=== PATIENT | female | born 1950 | race Caucasian/White ===

== ENCOUNTER → 2019-10-07 13:07 | Outpatient (BNVA) | payer MEDICARE, OTHER, SELFPAY | PROVIDERS: Family Provider Family Medicine; PCP Family Medicine; Referring Provider Internal Medicine Rheumatology; Visit Provider Internal Medicine Rheumatology | DX: M05.79 Rheumatoid arthritis with rheumatoid factor of multiple sites without organ or systems involvement (principal) | CPT/HCPCS: 96365; 96374; 96375; J1642; J2930; J3262 ==

== ENCOUNTER 2019-10-07 13:30 | Outpatient (CLI) | payer MEDICARE, OTHER, SELFPAY | END 2019-10-07 13:31 | disposition home or self-care (01) | LOC: RHEOACUTE 10-18 16:09 | PROVIDERS: Family Provider Family Medicine; PCP Family Medicine; Visit Provider Internal Medicine Rheumatology | DX: Z76.89 Persons encountering health services in other specified circumstances (principal) | CPT/HCPCS: J1642; J2930; J3262 ==

== ENCOUNTER → 2019-11-03 10:46 | Outpatient (BNVA) | payer MEDICARE, OTHER, SELFPAY | PROVIDERS: Family Provider Family Medicine; PCP Family Medicine; Visit Provider Internal Medicine Rheumatology | DX: M05.9 Rheumatoid arthritis with rheumatoid factor, unspecified (principal); Z79.899 Other long term (current) drug therapy; Z11.59 Encounter for screening for other viral diseases; D72.819 Decreased white blood cell count, unspecified; M20.41 Other hammer toe(s) (acquired), right foot; M85.841 Other specified disorders of bone density and structure, right hand | CPT/HCPCS: 36415; 71046; 73130; 73630; 80076; 82306; 82565; 84439; 84443; 85025; 85651; 86140; 86480; 86704; 86803; 87340; 99214 ==

== ENCOUNTER 2019-11-03 13:15 | Outpatient (CLI) | payer MEDICARE, OTHER, SELFPAY ==
--- NOTE | 2019-11-03 13:25 | XR_ITS ---
WS: [id number] FOOT LEFT TECHNIQUE: 3 views of the left foot CLINICAL INFORMATION: ARTHRITIS COMPARISON: None. FINDINGS: Postoperative changes partial resection of the first proximal phalanx with joint replacement at the f irst MTP. Resection of the fifth phalanges. Resection of the fifth metatarsal with exclusion of the b ase. Chronic appearing erosive changes involving the second third and fourth metatarsal heads. 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 Diffuse osteopenia. Resection of the second phalanges. XR/XR foot LT min 3V* [id number] IMPRESSION: 1. Chronic appearing postoperative changes with replacement of the first MTP. 2. Resection of the majority of the fifth metatarsal and second and fifth phal anges. 3. Chronic appearing dislocation of the third MTP.
--- NOTE | 2019-11-03 13:25 | XR_ITS ---
WS: [id number] HAND LEFT TECHNIQUE: 3 views of the left hand CLINICAL INFORMATION: ARTHRITIS COMPARISON: 2009 FINDINGS: Osteopenia. Advanced arthritis the radiocarpal joint with subchondral cystic change. Loss of the radi ocarpal joint space. Advanced degenerative change at the DRUJ. Previous joint prostheses at the secon d third fourth and fifth MTP joints. Chronic narrowing with advanced erosive changes involving the fi rst and second MTP joints. Periarticular erosions about the MTP joints. PIP and DIP joints are better preserved. XR/XR hand LT min 3V* [id number] IMPRESSION: 1. Advanced erosive changes with prior joint prostheses at the second through fifth MTP joints. 2. Advanced degenerative narrowing at the radiocarpal joint with subchondral c ystic change.
--- NOTE | 2019-11-03 13:25 | XR_ITS ---
WS: [id number] PROCEDURE: XR chest 2V* [id number] CLINICAL INFORMATION: ARTHRITIS COMPARISON: October 13, 2015 FINDINGS: Right Port-A-Cath with tip in the proximal SVC. This appears unchanged. Heart: Normal cardiac silhouette. Aortic calcification. Lungs: Chronic emphysematous changes. No acute pulmonary infiltrates. Slight linear atelectasis left midlung unchanged. Bones: Mild thoracic kyphosis with hypertrophic changes thoracic spine. XR/XR chest 2V* [id number] IMPRESSION: No acute chest findings.
--- NOTE | 2019-11-03 13:25 | XR_ITS ---
WS: [id number] HAND RIGHT TECHNIQUE: 3 views of the right hand CLINICAL INFORMATION: ARTHRITIS COMPARISON: 2009 FINDINGS: Osteopenia. Advanced degenerative arthritis at the first through fifth MTP joints with periarticular erosive changes and complete loss of the joint space. PIP and DIP joints are better preserved. Osteop enia. Advanced narrowing at the radiocarpal joint with subchondral cystic change. Advanced degenerati ve changes at the DRUJ. XR/XR hand RT min 3V* [id number] IMPRESSION: 1. Advanced joint space narrowing and erosive changes at the first through fif th MTP joints. 2. Advanced severe narrowing at the radiocarpal joint with subchondral cystic change. 3. Osteopenia.
--- NOTE | 2019-11-03 13:25 | XR_ITS ---
WS: [id number] FOOT RIGHT TECHNIQUE: 3 views of the right foot CLINICAL INFORMATION: ARTHRITIS COMPARISON: None. FINDINGS: Chronic appearing erosive changes involving the metatarsal heads. Partial replacement of the first MT PJ. Widening and subluxation at the second through fifth MTP joints with periarticular erosions. Oste openia. Hammertoe deformities. XR/XR foot RT min 3V* [id number] IMPRESSION: 1. Partial replacement of the first MTP. 2. Chronic erosive changes involving the metatarsal heads with subluxation of the MTP joints. 3. Hammertoe deformities.
== END 2019-11-03 13:16 | disposition home or self-care (01) ==
PROVIDERS: Family Provider Family Medicine; PCP Family Medicine; Visit Provider Internal Medicine Rheumatology
DX: M20.41 Other hammer toe(s) (acquired), right foot (principal); M85.841 Other specified disorders of bone density and structure, right hand
CPT/HCPCS: 36415; 71046; 73130; 73630; 80076; 82306; 82565; 84439; 84443; 85651; 86140; 86480; 86704; 86803; 87340; 99214

== ENCOUNTER 2019-11-18 12:40 | Outpatient (CLI) | payer MEDICARE, OTHER, SELFPAY ==
[2019-11-18 13:14] VITALS: BP 122/80; PULSE 83; RESP 16; TEMP 36.6; O2SAT 96
[2019-11-18] MEDS: cetirizine 10 mg Tablet PO (13:59)
[2019-11-18 17:39] VITALS: BP 124/78; PULSE 80; RESP 18; TEMP 36.4; O2SAT 96
--- NOTE | 2019-11-18 17:40 | PC.NURSE ---
Attempted access of port a cath in right lower chest breast area. Port small, moveable and turns. No blood return noted. Pt stated they have never been able to obtain blood return. Attempted x 2. Pt stated NS flush burned. DC port needle x2. Discussed with pt that without blood return we do not know if port functioning and cannot infuse medication in it. Pt verbalized understanding. Advised to see MD regarding port and future use. Dr. Landaverde notified. IV started for infusion.
== END 2019-11-18 12:41 | disposition home or self-care (01) ==
LOC: RHEOACUTE 12:43
PROVIDERS: Family Provider Family Medicine; PCP Family Medicine; Visit Provider Internal Medicine Rheumatology
DX: M05.79 Rheumatoid arthritis with rheumatoid factor of multiple sites without organ or systems involvement (principal); Z79.899 Other long term (current) drug therapy
CPT/HCPCS: 36415; 85025; 96365; 96374; J2930; J3262

== ENCOUNTER → 2019-11-18 16:09 | Outpatient (BNVA) | payer MEDICARE, OTHER, SELFPAY | PROVIDERS: Family Provider Family Medicine; PCP Family Medicine; Visit Provider Internal Medicine Rheumatology | DX: M05.79 Rheumatoid arthritis with rheumatoid factor of multiple sites without organ or systems involvement (principal); Z79.899 Other long term (current) drug therapy | CPT/HCPCS: 85025 ==

== ENCOUNTER 2019-12-21 09:15 | Outpatient (CLI) | payer MEDICARE, OTHER, SELFPAY ==
[2019-12-21 09:20] VITALS: BP 117/79; PULSE 81; RESP 16; TEMP 36.4; O2SAT 96
[2019-12-21] MEDS: cetirizine 10 mg Tablet PO (09:48)
[2019-12-21 11:20] VITALS: BP 118/75; PULSE 76; RESP 16; TEMP 36.8; O2SAT 96
--- NOTE | 2019-12-21 14:13 | PC.NURSE ---
Denies illness, exposure to anyone with or suspected of COVID 19, Denies cough, denies fever.
== END 2019-12-21 09:16 | disposition home or self-care (01) ==
LOC: RHEOACUTE 09:17
PROVIDERS: Family Provider Family Medicine; PCP Family Medicine; Visit Provider Internal Medicine Rheumatology
DX: M05.9 Rheumatoid arthritis with rheumatoid factor, unspecified (principal)
CPT/HCPCS: 96365; 96374; J2930; J3262

== ENCOUNTER 2020-01-13 09:54 | Outpatient (CLI) | payer MEDICARE, OTHER, SELFPAY ==
[2020-01-13 10:00] VITALS: BP 133/83; PULSE 87; RESP 16; TEMP 36.8; O2SAT 94
[2020-01-13] MEDS: cetirizine 10 mg Tablet PO (12:10)
--- NOTE | 2020-01-13 12:12 | PC.NURSE ---
1030 Port a cath to R lower chest/breast area. Unable to access successfully. No blood return. Pt states no blood return in quite some time. Advised she needs to look into new port for infusions.
--- NOTE | 2020-01-13 12:13 | PC.NURSE ---
1150 Pt stated she thought she pulled IV and now stinging. Sl swelling noted above site. IV DC'd. IV restarted to L wrist area.
[2020-01-13 12:46] VITALS: BP 116/75; PULSE 76; RESP 18; O2SAT 94
== END 2020-01-13 09:55 | disposition home or self-care (01) ==
LOC: RHEOACUTE 09:56
PROVIDERS: Family Provider Family Medicine; PCP Family Medicine; Visit Provider Internal Medicine Rheumatology
DX: M05.79 Rheumatoid arthritis with rheumatoid factor of multiple sites without organ or systems involvement (principal); Z79.899 Other long term (current) drug therapy
CPT/HCPCS: 36415; 80076; 82565; 85025; 85651; 86140; 96365; 96374; J2930; J3262

== ENCOUNTER 2020-03-13 10:53 | Outpatient (CLI) | payer MEDICARE, OTHER, SELFPAY ==
[2020-03-13 11:05] VITALS: BP 102/71; PULSE 85; RESP 16; TEMP 36.4; O2SAT 98
[2020-03-13] MEDS: cetirizine 10 mg Tablet PO (11:56)
[2020-03-13 13:50] VITALS: BP 104/64; PULSE 72; RESP 16; TEMP 36.4; O2SAT 98
== END 2020-03-13 10:54 | disposition home or self-care (01) ==
LOC: RHEOACUTE 10:54
PROVIDERS: Family Provider Family Medicine; PCP Family Medicine; Visit Provider Internal Medicine Rheumatology
DX: M05.79 Rheumatoid arthritis with rheumatoid factor of multiple sites without organ or systems involvement (principal); Z79.899 Other long term (current) drug therapy
CPT/HCPCS: 36415; 80076; 82565; 85025; 85651; 86140; 96365; 96374; J1642; J2930; J3262

== ENCOUNTER 2020-06-07 09:15 | Outpatient (CLI) | payer MEDICARE, OTHER, SELFPAY ==
[2020-06-07] VITALS (8 sets, daily range): BP systolic 92–110; BP diastolic 58–68; PULSE 66–82; RESP 16; TEMP 36.4; O2SAT 94–98; BMI 25.9
[2020-06-07] MEDS: sodium chloride 0.9% 250 ML 500 ML IV (10:20)
--- NOTE | 2020-06-07 10:25 | PC.NURSE ---
0925 Pt A&Ox4. Denies pain. Ambulating without assistance. Lungs clear. Normal S1S2 noted. No edema. Noted BP. Pt denies any BP issues, denies dizziness or feeling faint. Took Lasix last pm. Pt concerned about labs to be drawn per PCP. Discussed we would contact PCP. Dr. Landaverde notified of BP. RBVO for NS bolus. Dr. Landaverde discussed plan for NS bolus with pt. Pt agreed and verbalized understanding.
--- NOTE | 2020-06-07 10:58 | PC.NURSE ---
0915 Standing BP 97/62 HR 78
[2020-06-07] MEDS: sodium chloride 0.9% 1,000 ML 500 ML (10:59)
--- NOTE | 2020-06-07 10:59 | PC.NURSE ---
8087 Dr. Landaverde notified of bolus complete and BP. Lungs clear. New orders to repeat bolus.
--- NOTE | 2020-06-07 12:02 | PC.NURSE ---
1140 Pt expressing frustration with delay. Apologized. Will continue to monitor
--- NOTE | 2020-06-07 12:03 | PC.NURSE ---
Notified Dr. Landaverde of BP and completed bolus. OK to give Actemra infusion.
--- NOTE | 2020-06-07 12:05 | PC.NURSE ---
Attempted PCP office regarding BP and pt request for additional labs. Called 3 times. Disconnected 2x. Left message for nurse approx. @1000.
[2020-06-07] MEDS: cetirizine 10 mg Tablet PO (12:15)
--- NOTE | 2020-06-07 12:18 | PC.NURSE ---
[place] juice given per request
--- NOTE | 2020-06-07 12:52 | PC.NURSE ---
c/o chair and discomfort from sitting. Pillow given and assisted pt with placement.
--- NOTE | 2020-06-07 13:22 | PC.NURSE ---
Dr. Landaverde notified of VS
--- NOTE | 2020-06-07 13:25 | PC.NURSE ---
Left message for Dr. Dugan's nurse.
--- NOTE | 2020-06-07 14:30 | PC.NURSE ---
No return call from PCP office. Pt instructed to contact PCP office regarding blood pressure.
== END 2020-06-07 09:16 | disposition home or self-care (01) ==
LOC: RHEOACUTE 09:18
PROVIDERS: Family Provider Family Medicine; PCP Family Medicine; Visit Provider Internal Medicine Rheumatology
DX: M05.79 Rheumatoid arthritis with rheumatoid factor of multiple sites without organ or systems involvement (principal); Z79.899 Other long term (current) drug therapy
CPT/HCPCS: 80076; 82565; 85025; 85651; 86140; 96365; 96375; J2930; J3262; J7030; J7050

== ENCOUNTER 2020-07-13 10:00 | Outpatient (CLI) | payer MEDICARE, OTHER, SELFPAY ==
[2020-07-13 10:00] VITALS: BP 120/73; PULSE 80; RESP 16; TEMP 36.7; O2SAT 98
[2020-07-13] MEDS: cetirizine 10 mg Tablet PO (10:30)
[2020-07-13 11:16] VITALS: BMI 25.9
[2020-07-13 12:22] VITALS: BP 109/66; PULSE 76; RESP 16; O2SAT 98
== END 2020-07-13 10:01 | disposition home or self-care (01) ==
LOC: RHEOACUTE 10:01
PROVIDERS: Family Provider Family Medicine; PCP Family Medicine; Visit Provider Internal Medicine Rheumatology
DX: M05.79 Rheumatoid arthritis with rheumatoid factor of multiple sites without organ or systems involvement (principal)
CPT/HCPCS: 96365; 96375; J2930; J3262

== ENCOUNTER 2020-08-09 10:47 | Outpatient (CLI) | payer MEDICARE, OTHER, SELFPAY ==
[2020-08-09] MEDS: cetirizine 10 mg Tablet PO (11:03)
[2020-08-09 13:02] VITALS: BP 110/68; PULSE 78; RESP 16; O2SAT 96
== END 2020-08-09 10:48 | disposition home or self-care (01) ==
LOC: RHEOACUTE 10:49
PROVIDERS: Family Provider Family Medicine; PCP Family Medicine; Visit Provider Internal Medicine Rheumatology
DX: Z79.899 Other long term (current) drug therapy; D72.819 Decreased white blood cell count, unspecified; Z86.711 Personal history of pulmonary embolism; E03.9 Hypothyroidism, unspecified; E78.00 Pure hypercholesterolemia, unspecified; I27.20 Pulmonary hypertension, unspecified; M05.9 Rheumatoid arthritis with rheumatoid factor, unspecified
CPT/HCPCS: 80076; 82565; 84439; 84443; 85025; 85651; 86140; 96365; 96375; 99214; J2930; J3262

== ENCOUNTER 2020-09-06 12:58 | Outpatient (CLI) | payer MEDICARE, OTHER, SELFPAY ==
[2020-09-06 13:05] VITALS: BP 133/82; PULSE 81; RESP 16; TEMP 36.3; O2SAT 98
[2020-09-06] MEDS: cetirizine 10 mg Tablet (13:33)
[2020-09-06 15:00] VITALS: BP 118/77; PULSE 77; TEMP 36.8; O2SAT 99
== END 2020-09-06 12:59 | disposition home or self-care (01) ==
LOC: RHEOACUTE 13:00
PROVIDERS: Family Provider Family Medicine; PCP Family Medicine; Visit Provider Internal Medicine Rheumatology
DX: M05.79 Rheumatoid arthritis with rheumatoid factor of multiple sites without organ or systems involvement (principal)
CPT/HCPCS: 96365; 96375; J2930; J3262

== ENCOUNTER 2020-10-26 12:48 | Outpatient (CLI) | payer MEDICARE, OTHER, SELFPAY ==
[2020-10-26] MEDS: sodium chloride 0.9% (100 ml) 100 ML 75 ML (14:15)
[2020-10-26] MEDS: cetirizine 10 mg Tablet PO (14:15)
[2020-10-26 14:48] LABS: Basophils % 1.1 %; Eosinophils # 0.1 10^3/uL (0.0-0.8); Eosinophils % 3.8 %; Hematocrit 38.7 % (37.0-47.0); Hemoglobin 12.6 g/dL (11.5-15.3); Lymphocytes # 0.7 10^3/uL (0.8-4.8); Lymphocytes % 19.3 %; Mean Corpuscular HGB Conc 32.6 g/dL (30.0-36.0); Mean Corpuscular Hemoglobin 30.1 pg (28.0-34.0); Mean Corpuscular Volume 92.4 fL (81-99); Mean Platelet Volume 10.9 fL (7.4-10.4); Monocytes # 0.4 10^3/uL (0.2-0.9); Monocytes % 9.8 %; Neutrophils # 2.43 10^3/uL (1.8-7.7); Nucleated Red Blood Cells % 0 %; Platelet Count 204 10^3/cmm (130-400); Red Blood Count 4.19 10^6/uL (4.1-5.3); Red Cell Distribution Width 11.9 % (12.1-15.1); White Blood Count 3.7 10^3/uL (4.0-10.0)
[2020-10-26 15:47] LABS: Alanine Aminotransferase 13 U/L (0-33); Albumin Level 3.9 g/dL (3.5-5.2); Alkaline Phosphatase 67 IU/L (35-105); Aspartate Amino Transferase 20 U/L (0-32); Blood Urea Nitrogen 16 mg/dL (8-23); Calcium 8.6 mg/dL (8.5-10.5); Carbon Dioxide 30 mmol/L (22-29); Chloride 103 mmol/L (98-107); Globulin 2.5 g/dL (1.3-4.6); Glucose 69 mg/dL (65-115); Osmolality Calculated 288 mOsm/kg (285-295); Sodium 139 mmol/L (136-145); Total Bilirubin 0.3 mg/dL (0.15-1.2); Total Protein 6.4 g/dL (6.6-8.7)
[2020-10-26 15:50] LABS: Anion Gap 9.3 (5-19); Potassium 3.3 mmol/L (3.5-5.1)
[2020-10-26 15:54] LABS: Alanine Aminotransferase 14 U/L (0-33); Albumin Level 3.8 g/dL (3.5-5.2); Alkaline Phosphatase 63 IU/L (35-105); Aspartate Amino Transferase 19 U/L (0-32); C Reactive Protein 0.3 mg/L (0.0-4.9); Free T4 Free Thyroxine 1.47 ng/dL (0.82-1.77); Globulin 2.4 g/dL (1.3-4.6); Thyroid Stimulating Hormone 0.06 uIU/mL (0.27-4.20); Total Bilirubin 0.3 mg/dL (0.15-1.2); Total Protein 6.2 g/dL (6.6-8.7)
[2020-10-26 16:22] LABS: Erythrocyte Sedimentation Rate 7 mm/hr (0-15)
--- NOTE | 2020-11-21 08:32 | PC.NURSE ---
Due to an administrative issue we are doing a late entry for clarity of the medical record. The infusion case was routine and the approximate stop time was 1520 based upon the start time of 1420.
== END 2020-10-26 12:49 | disposition home or self-care (01) ==
PROVIDERS: Family Provider Family Medicine; PCP Family Medicine; Visit Provider Internal Medicine Rheumatology
DX: M05.79 Rheumatoid arthritis with rheumatoid factor of multiple sites without organ or systems involvement (principal); Z79.899 Other long term (current) drug therapy
CPT/HCPCS: 80053; 80076; 82565; 84439; 84443; 85025; 85651; 86140; 96365; 96375; J2930; J3262

== ENCOUNTER 2020-11-27 13:34 | Outpatient (CLI) | payer MEDICARE, OTHER, SELFPAY ==
[2020-11-27] MEDS: cetirizine 10 mg Tablet PO (14:20)
[2020-11-27 14:25] VITALS: BP 126/81; PULSE 77; RESP 18; TEMP 36.6; O2SAT 97
[2020-11-27 15:50] VITALS: BP 126/81; PULSE 77; RESP 17; TEMP 36.6; O2SAT 97
== END 2020-11-27 13:35 | disposition home or self-care (01) ==
PROVIDERS: PCP Family Medicine; Visit Provider Internal Medicine Rheumatology
DX: M05.79 Rheumatoid arthritis with rheumatoid factor of multiple sites without organ or systems involvement (principal)
CPT/HCPCS: 96365; 96375; J2930; J3262

== ENCOUNTER 2021-01-23 11:06 | Outpatient (CLI) | payer MEDICARE, OTHER, SELFPAY ==
[2021-01-23 11:20] VITALS: BP 118/68; PULSE 91; RESP 16; TEMP 36.3; O2SAT 98
[2021-01-23] MEDS: alteplase 1 mg/mL SDV 2 mL 2 MG IV (12:17)
[2021-01-23] MEDS: diphenhydrAMINE 50 mg/mL SDV 1mL 25 MG IVP (12:45)
[2021-01-23] MEDS: sodium chloride 0.9% 250 ML 75 ML IV (12:45)
[2021-01-23 13:33] LABS: Basophils % 0.6 %; Eosinophils # 0.1 10^3/uL (0.0-0.8); Eosinophils % 2.3 %; Hematocrit 36.5 % (37.0-47.0); Hemoglobin 11.8 g/dL (11.5-15.3); Lymphocytes # 0.6 10^3/uL (0.8-4.8); Lymphocytes % 11.5 %; Mean Corpuscular HGB Conc 32.3 g/dL (30.0-36.0); Mean Corpuscular Hemoglobin 30.3 pg (28.0-34.0); Mean Corpuscular Volume 93.6 fL (81-99); Mean Platelet Volume 11.1 fL (7.4-10.4); Monocytes # 0.5 10^3/uL (0.2-0.9); Monocytes % 9.6 %; Neutrophils # 3.87 10^3/uL (1.8-7.7); Neutrophils % 75.8 %; Nucleated Red Blood Cells % 0 %; Platelet Count 208 10^3/cmm (130-400); Red Cell Distribution Width 11.5 % (12.1-15.1); White Blood Count 5.1 10^3/uL (4.0-10.0)
[2021-01-23 14:10] VITALS: BP 106/65; PULSE 86; RESP 16; TEMP 36.6; O2SAT 98
[2021-01-23 14:13] LABS: Alanine Aminotransferase 13 U/L (0-33); Albumin Level 3.5 g/dL (3.5-5.2); Alkaline Phosphatase 68 IU/L (35-105); Aspartate Amino Transferase 18 U/L (0-32); Globulin 2.4 g/dL (1.3-4.6); Thyroid Stimulating Hormone 0.04 uIU/mL (0.27-4.20); Total Bilirubin 0.2 mg/dL (0.15-1.2); Total Protein 5.9 g/dL (6.6-8.7)
[2021-01-23 14:40] LABS: Free T4 Free Thyroxine 1.36 ng/dL (0.82-1.77)
== END 2021-01-23 11:07 | disposition home or self-care (01) ==
PROVIDERS: PCP Family Medicine; Visit Provider Internal Medicine Rheumatology
DX: M05.79 Rheumatoid arthritis with rheumatoid factor of multiple sites without organ or systems involvement (principal)
CPT/HCPCS: 80076; 82565; 84439; 84443; 85025; 96365; 96375; J1200; J2920; J2997; J3262; J7050

== ENCOUNTER → 2021-01-31 13:32 | Outpatient (BNVA) | payer MEDICARE, OTHER, SELFPAY | PROVIDERS: PCP Family Medicine; Visit Provider Internal Medicine Rheumatology | DX: M05.9 Rheumatoid arthritis with rheumatoid factor, unspecified (principal); D72.819 Decreased white blood cell count, unspecified; Z86.711 Personal history of pulmonary embolism; Z79.899 Other long term (current) drug therapy | CPT/HCPCS: 99214 ==

== ENCOUNTER 2021-02-21 11:08 | Outpatient (CLI) | payer MEDICARE, OTHER, SELFPAY ==
[2021-02-21 11:46] VITALS: BP 120/63; PULSE 72; RESP 16; TEMP 36.2; O2SAT 99
[2021-02-21] MEDS: sodium chloride 0.9% 250 ML IV (12:07)
[2021-02-21] MEDS: diphenhydrAMINE 50 mg/mL SDV 1mL 25 MG IVP (12:09)
[2021-02-21 13:29] VITALS: BP 108/62; PULSE 67; RESP 16; TEMP 36.2; O2SAT 97
== END 2021-02-21 11:09 | disposition home or self-care (01) ==
PROVIDERS: PCP Family Medicine; Referring Provider Internal Medicine Rheumatology; Visit Provider Internal Medicine Rheumatology
DX: M05.79 Rheumatoid arthritis with rheumatoid factor of multiple sites without organ or systems involvement (principal)
CPT/HCPCS: 96365; 96375; J1200; J2920; J3262; J7050

== ENCOUNTER 2021-03-21 10:24 | Outpatient (CLI) | payer MEDICARE, OTHER, SELFPAY ==
[2021-03-21] MEDS: sodium chloride 0.9% 250 ML IV (11:10)
[2021-03-21] MEDS: diphenhydrAMINE 50 mg/mL SDV 1mL 25 MG IVP (11:10)
== END 2021-03-21 10:25 | disposition home or self-care (01) ==
PROVIDERS: PCP Family Medicine; Visit Provider Internal Medicine Medical Oncology
DX: M05.79 Rheumatoid arthritis with rheumatoid factor of multiple sites without organ or systems involvement
CPT/HCPCS: 96365; 96375; J1200; J2920; J3262; J7050

== ENCOUNTER 2021-04-18 08:36 | Outpatient (CLI) | payer MEDICARE, OTHER, SELFPAY ==
[2021-04-18 08:46] VITALS: BP 111/58; PULSE 80; RESP 18; TEMP 36.3; O2SAT 97
[2021-04-18] MEDS: alteplase 1 mg/mL SDV 2 mL 2 MG INTRACATH (09:45)
[2021-04-18] MEDS: sodium chloride 0.9% 250 ML 75 ML IV (10:10)
[2021-04-18] MEDS: diphenhydrAMINE 50 mg/mL SDV 1mL 25 MG IVP (10:11)
[2021-04-18 10:25] LABS: Basophils % 0.9 %; Eosinophils # 0.2 10^3/uL (0.0-0.8); Eosinophils % 4.9 %; Hematocrit 35.3 % (37.0-47.0); Hemoglobin 11.5 g/dL (11.5-15.3); Lymphocytes # 0.6 10^3/uL (0.8-4.8); Lymphocytes % 17.7 %; Mean Corpuscular HGB Conc 32.6 g/dL (30.0-36.0); Mean Corpuscular Hemoglobin 29.9 pg (28.0-34.0); Mean Corpuscular Volume 91.7 fL (81-99); Mean Platelet Volume 11.2 fL (7.4-10.4); Monocytes # 0.4 10^3/uL (0.2-0.9); Monocytes % 12.2 %; Neutrophils % 64.3 %; Nucleated Red Blood Cells % 0 %; Platelet Count 178 10^3/cmm (130-400); Red Blood Count 3.85 10^6/uL (4.1-5.3); Red Cell Distribution Width 12.1 % (12.1-15.1); White Blood Count 3.3 10^3/uL (4.0-10.0)
[2021-04-18 11:04] LABS: Alanine Aminotransferase 13 U/L (0-33); Albumin Level 3.8 g/dL (3.5-5.2); Alkaline Phosphatase 53 IU/L (35-105); Aspartate Amino Transferase 19 U/L (0-32); C Reactive Protein 0.3 mg/L (0.0-4.9); Globulin 2.1 g/dL (1.3-4.6); Total Bilirubin 0.3 mg/dL (0.15-1.2); Total Protein 5.9 g/dL (6.6-8.7)
[2021-04-18 12:03] VITALS: BP 101/55; PULSE 65; RESP 18; TEMP 36.1; O2SAT 99
== END 2021-04-18 08:37 | disposition home or self-care (01) ==
PROVIDERS: PCP Family Medicine; Referring Provider Internal Medicine Rheumatology; Visit Provider Internal Medicine Rheumatology
DX: M05.79 Rheumatoid arthritis with rheumatoid factor of multiple sites without organ or systems involvement (principal); Z79.899 Other long term (current) drug therapy
CPT/HCPCS: 80076; 82565; 85025; 86140; 96365; 96375; J1200; J2920; J2997; J3262; J7050

== ENCOUNTER 2021-05-16 08:57 | Outpatient (CLI) | payer MEDICARE, OTHER, SELFPAY ==
[2021-05-16 09:11] VITALS: BP 126/76; PULSE 74; RESP 18; TEMP 36.1; O2SAT 99
[2021-05-16] MEDS: sodium chloride 0.9% 250 ML 75 ML IV (09:30)
[2021-05-16] MEDS: diphenhydrAMINE 50 mg/mL SDV 1mL 25 MG IVP (09:31)
[2021-05-16 11:04] VITALS: BP 104/60; PULSE 68; RESP 18; TEMP 36.1; O2SAT 100
== END 2021-05-16 08:58 | disposition home or self-care (01) ==
PROVIDERS: PCP Family Medicine; Referring Provider Internal Medicine Rheumatology; Visit Provider Internal Medicine Rheumatology
DX: M05.79 Rheumatoid arthritis with rheumatoid factor of multiple sites without organ or systems involvement (principal)
CPT/HCPCS: 96365; 96375; J1200; J2920; J3262; J7050

== ENCOUNTER 2021-06-13 09:26 | Outpatient (CLI) | payer MEDICARE, OTHER, SELFPAY ==
[2021-06-13 09:40] VITALS: BP 121/74; PULSE 84; RESP 18; TEMP 36.4; O2SAT 96
[2021-06-13] MEDS: alteplase 1 mg/mL SDV 2 mL 2 MG INTRACATH (09:57)
[2021-06-13] MEDS: alteplase 1 mg/mL SDV 2 mL 2 MG IV (11:15)
[2021-06-13] MEDS: sodium chloride 0.9% 250 ML 75 ML IV (12:07)
[2021-06-13] MEDS: diphenhydrAMINE 50 mg/mL SDV 1mL 25 MG IV (12:08)
[2021-06-13 12:23] LABS: Eosinophils # 0.1 10^3/uL (0.0-0.8); Eosinophils % 4.5 %; Hematocrit 34.2 % (37.0-47.0); Hemoglobin 11.2 g/dL (11.5-15.3); Lymphocytes # 0.6 10^3/uL (0.8-4.8); Lymphocytes % 19.5 %; Mean Corpuscular HGB Conc 32.7 g/dL (30.0-36.0); Mean Corpuscular Hemoglobin 29.9 pg (28.0-34.0); Mean Corpuscular Volume 91.4 fl (81-99); Monocytes # 0.4 10^3/uL (0.2-0.9); Monocytes % 12.5 %; Neutrophils # 1.95 10^3/uL (1.8-7.7); Neutrophils % 62.2 %; Nucleated Red Blood Cells % 0 %; Platelet Count 173 10^3/cmm (130-400); Red Blood Count 3.74 10^6/uL (4.1-5.3); Red Cell Distribution Width 11.5 % (12.1-15.1); White Blood Count 3.1 10^3/uL (4.0-10.0)
[2021-06-13 13:05] LABS: Alanine Aminotransferase 15 U/L (0-33); Albumin Level 3.7 g/dL (3.5-5.2); Alkaline Phosphatase 52 IU/L (35-105); Aspartate Amino Transferase 18 U/L (0-32); Free T4 Free Thyroxine 1.38 ng/dL (0.82-1.77); Total Bilirubin 0.2 mg/dL (0.15-1.2); Total Protein 5.7 g/dL (6.6-8.7)
[2021-06-13 13:49] VITALS: BP 118/63; PULSE 68; RESP 18; TEMP 36.4; O2SAT 98
== END 2021-06-13 09:27 | disposition home or self-care (01) ==
PROVIDERS: PCP Family Medicine; Referring Provider Internal Medicine Rheumatology; Visit Provider Internal Medicine Rheumatology
DX: M05.79 Rheumatoid arthritis with rheumatoid factor of multiple sites without organ or systems involvement (principal); Z79.899 Other long term (current) drug therapy
CPT/HCPCS: 80076; 82565; 84439; 85025; 96365; 96375; 96376; J1200; J2920; J2997; J3262; J7050

== ENCOUNTER 2021-07-12 08:34 | Outpatient (CLI) | payer MEDICARE, OTHER, SELFPAY ==
[2021-07-12 08:43] VITALS: BP 114/64; PULSE 76; RESP 18; TEMP 36.5; O2SAT 99
[2021-07-12] MEDS: sodium chloride 0.9% 250 ML 75 ML IV (09:06)
[2021-07-12] MEDS: diphenhydrAMINE 50 mg/mL SDV 1mL 25 MG IV (09:09)
[2021-07-12 10:36] VITALS: BP 104/58; PULSE 69; RESP 18; TEMP 36.5; O2SAT 97
== END 2021-07-12 08:35 | disposition home or self-care (01) ==
PROVIDERS: PCP Family Medicine; Referring Provider Internal Medicine Rheumatology; Visit Provider Internal Medicine Rheumatology
DX: M05.79 Rheumatoid arthritis with rheumatoid factor of multiple sites without organ or systems involvement (principal)
CPT/HCPCS: 96365; 96375; J1200; J2920; J3262; J7050

== ENCOUNTER 2021-08-09 08:54 | Outpatient (CLI) | payer MEDICARE, OTHER, SELFPAY ==
[2021-08-09 09:08] VITALS: BP 120/65; PULSE 81; RESP 18; TEMP 36.7; O2SAT 99
[2021-08-09 09:32] LABS: Basophils # 0.1 10^3/uL (0.0-0.1); Basophils % 1.7 %; Eosinophils # 0.1 10^3/uL (0.0-0.8); Eosinophils % 4.1 %; Hemoglobin 11.5 g/dL (11.5-15.3); Lymphocytes # 0.6 10^3/uL (0.8-4.8); Lymphocytes % 18.6 %; Mean Corpuscular HGB Conc 31.9 g/dL (30.0-36.0); Mean Corpuscular Hemoglobin 29.7 pg (28.0-34.0); Mean Platelet Volume 10.2 fL (7.4-10.4); Monocytes # 0.4 10^3/uL (0.2-0.9); Monocytes % 14.2 %; Neutrophils % 61.1 %; Nucleated Red Blood Cells % 0 %; Platelet Count 187 10^3/cmm (130-400); Red Blood Count 3.87 10^6/uL (4.1-5.3); Red Cell Distribution Width 11.6 % (12.1-15.1)
[2021-08-09] MEDS: sodium chloride 0.9% 250 ML 75 ML IV (09:37)
[2021-08-09] MEDS: diphenhydrAMINE 50 mg/mL SDV 1mL 25 MG IV (09:38)
[2021-08-09 10:08] LABS: Alanine Aminotransferase 12 U/L (0-33); Albumin Level 3.8 g/dL (3.5-5.2); Alkaline Phosphatase 50 IU/L (35-105); Aspartate Amino Transferase 19 U/L (0-32); Globulin 2.1 g/dL (1.3-4.6); Total Bilirubin 0.2 mg/dL (0.15-1.2); Total Protein 5.9 g/dL (6.6-8.7)
[2021-08-09 11:02] VITALS: BP 119/63; PULSE 73; RESP 18; TEMP 36.4; O2SAT 100
== END 2021-08-09 08:55 | disposition home or self-care (01) ==
PROVIDERS: PCP Family Medicine; Referring Provider Internal Medicine Rheumatology; Visit Provider Internal Medicine Rheumatology
DX: M05.79 Rheumatoid arthritis with rheumatoid factor of multiple sites without organ or systems involvement (principal); Z79.899 Other long term (current) drug therapy
CPT/HCPCS: 80076; 82565; 85025; 96365; 96375; J1200; J2920; J3262; J7050

== ENCOUNTER 2021-09-11 07:36 | Outpatient (CLI) | payer MEDICARE, OTHER, SELFPAY ==
[2021-09-11 08:00] VITALS: BP 122/78; PULSE 79; RESP 18; TEMP 36.2; O2SAT 97
[2021-09-11] MEDS: sodium chloride 0.9% 250 ML 75 ML IV (08:18)
[2021-09-11] MEDS: diphenhydrAMINE 50 mg/mL SDV 1mL 25 MG IV (08:28)
[2021-09-11 09:47] VITALS: BP 112/69; PULSE 73; RESP 18; TEMP 36.4; O2SAT 99
== END 2021-09-11 07:37 | disposition home or self-care (01) ==
LOC: ONCMED 07:44
PROVIDERS: PCP Family Medicine; Referring Provider Internal Medicine Rheumatology; Visit Provider Internal Medicine Rheumatology
DX: M05.79 Rheumatoid arthritis with rheumatoid factor of multiple sites without organ or systems involvement (principal); Z79.899 Other long term (current) drug therapy; D72.819 Decreased white blood cell count, unspecified; E78.00 Pure hypercholesterolemia, unspecified; I27.20 Pulmonary hypertension, unspecified; Z89.412 Acquired absence of left great toe; Z89.422 Acquired absence of other left toe(s); Z86.711 Personal history of pulmonary embolism; Z86.718 Personal history of other venous thrombosis and embolism; Z79.01 Long term (current) use of anticoagulants
CPT/HCPCS: 96365; 96375; 99214; J1200; J2920; J3262; J7050

== ENCOUNTER 2021-10-09 07:50 | Outpatient (CLI) | payer MEDICARE, OTHER, SELFPAY ==
[2021-10-09 08:03] VITALS: BP 129/74; PULSE 76; RESP 18; TEMP 36.3; O2SAT 99
[2021-10-09] MEDS: alteplase 1 mg/mL SDV 2 mL 2 MG IV (08:32)
[2021-10-09 09:16] LABS: Eosinophils # 0.3 10^3/uL (0.0-0.8); Eosinophils % 8.4 %; Hematocrit 35.1 % (37.0-47.0); Hemoglobin 11.2 g/dL (11.5-15.3); Lymphocytes # 0.6 10^3/uL (0.8-4.8); Lymphocytes % 20.1 %; Mean Corpuscular HGB Conc 31.9 g/dL (30.0-36.0); Mean Corpuscular Hemoglobin 29.6 pg (28.0-34.0); Mean Corpuscular Volume 92.9 fl (81-99); Mean Platelet Volume 10.2 fL (7.4-10.4); Monocytes # 0.3 10^3/uL (0.2-0.9); Monocytes % 10.7 %; Neutrophils # 1.85 10^3/uL (1.8-7.7); Neutrophils % 59.8 %; Nucleated Red Blood Cells % 0 %; Platelet Count 191 10^3/cmm (130-400); Red Blood Count 3.78 10^6/uL (4.1-5.3); Red Cell Distribution Width 11.7 % (12.1-15.1); White Blood Count 3.1 10^3/uL (4.0-10.0)
[2021-10-09] MEDS: sodium chloride 0.9% 250 ML 50 ML IV (09:32)
[2021-10-09] MEDS: diphenhydrAMINE 50 mg/mL SDV 1mL 25 MG IV (09:33)
[2021-10-09 09:41] LABS: Alanine Aminotransferase 12 U/L (0-33); Albumin Level 3.7 g/dL (3.5-5.2); Alkaline Phosphatase 49 IU/L (35-105); Aspartate Amino Transferase 18 U/L (0-32); Total Bilirubin 0.2 mg/dL (0.15-1.2); Total Protein 5.7 g/dL (6.6-8.7)
[2021-10-09 10:45] VITALS: BP 106/65; PULSE 67; RESP 16; TEMP 36.5; O2SAT 99
== END 2021-10-09 07:51 | disposition home or self-care (01) ==
LOC: ONCMED 07:55
PROVIDERS: PCP Family Medicine; Referring Provider Internal Medicine Rheumatology; Visit Provider Internal Medicine Rheumatology
DX: M05.79 Rheumatoid arthritis with rheumatoid factor of multiple sites without organ or systems involvement (principal)
CPT/HCPCS: 80076; 82565; 85025; 96365; 96375; J1200; J2920; J2997; J3262; J7050

== ENCOUNTER 2021-11-06 07:40 | Outpatient (CLI) | payer MEDICARE, OTHER, SELFPAY ==
[2021-11-06 08:04] VITALS: BP 123/75; PULSE 70; RESP 18; TEMP 36.2; O2SAT 99
[2021-11-06] MEDS: alteplase 1 mg/mL SDV 2 mL 2 MG IV (08:24)
[2021-11-06] MEDS: sodium chloride 0.9% 250 ML 50 ML IV (09:19)
[2021-11-06] MEDS: diphenhydrAMINE 50 mg/mL SDV 1mL 25 MG IV (09:20)
[2021-11-06 10:29] VITALS: BP 116/74; PULSE 66; RESP 18; TEMP 36.5; O2SAT 98
== END 2021-11-06 07:41 | disposition home or self-care (01) ==
PROVIDERS: PCP Family Medicine; Referring Provider Internal Medicine Rheumatology; Visit Provider Internal Medicine Rheumatology
DX: M05.79 Rheumatoid arthritis with rheumatoid factor of multiple sites without organ or systems involvement (principal)
CPT/HCPCS: 36593; 96365; 96375; J1200; J2920; J2997; J3262; J7050

== ENCOUNTER 2021-12-04 07:45 | Outpatient (CLI) | payer MEDICARE, OTHER, SELFPAY ==
[2021-12-04 08:15] VITALS: BP 117/63; PULSE 81; RESP 18; TEMP 36.6; O2SAT 99
[2021-12-04] MEDS: alteplase 1 mg/mL SDV 2 mL 2 MG IV ×2 (08:29→09:21)
[2021-12-04 09:51] LABS: Basophils % 0.7 %; Eosinophils # 0.2 10^3/uL (0.0-0.8); Eosinophils % 6.3 %; Hematocrit 34.3 % (37.0-47.0); Lymphocytes # 0.7 10^3/uL (0.8-4.8); Mean Corpuscular HGB Conc 32.1 g/dL (30.0-36.0); Mean Corpuscular Hemoglobin 29.8 pg (28.0-34.0); Mean Platelet Volume 10.5 fL (7.4-10.4); Monocytes # 0.4 10^3/uL (0.2-0.9); Neutrophils # 1.77 10^3/uL (1.8-7.7); Nucleated Red Blood Cells % 0 %; Platelet Count 187 10^3/cmm (130-400); Red Blood Count 3.69 10^6/uL (4.1-5.3); Red Cell Distribution Width 11.7 % (12.1-15.1)
[2021-12-04] MEDS: sodium chloride 0.9% 250 ML 50 ML IV (09:57)
[2021-12-04] MEDS: diphenhydrAMINE 50 mg/mL SDV 1mL 25 MG IV (09:58)
[2021-12-04 10:06] LABS: Alanine Aminotransferase 12 U/L (0-33); Albumin Level 3.8 g/dL (3.5-5.2); Alkaline Phosphatase 46 IU/L (35-105); Aspartate Amino Transferase 22 U/L (0-32); Globulin 2.1 g/dL (1.3-4.6); Total Bilirubin 0.2 mg/dL (0.15-1.2); Total Protein 5.9 g/dL (6.6-8.7)
[2021-12-04 11:29] VITALS: BP 117/73; PULSE 73; RESP 18; TEMP 36.6; O2SAT 96
== END 2021-12-04 07:46 | disposition home or self-care (01) ==
PROVIDERS: PCP Family Medicine; Referring Provider Internal Medicine Rheumatology; Visit Provider Internal Medicine Rheumatology
DX: M05.79 Rheumatoid arthritis with rheumatoid factor of multiple sites without organ or systems involvement (principal); Z79.899 Other long term (current) drug therapy
CPT/HCPCS: 36593; 80076; 82565; 85025; 96365; 96375; J1200; J2920; J2997; J3262; J7050

== ENCOUNTER 2022-01-17 07:54 | Outpatient (CLI) | payer MEDICARE, OTHER, SELFPAY ==
[2022-01-17] MEDS: alteplase 1 mg/mL SDV 2 mL 2 MG IV (08:29)
[2022-01-17 08:30] VITALS: BP 101/67; PULSE 70; RESP 18; TEMP 36.4; O2SAT 99
[2022-01-17] MEDS: sodium chloride 0.9% 250 ML 50 ML IV (09:29)
[2022-01-17] MEDS: diphenhydrAMINE 50 mg/mL SDV 1mL 25 MG IV (09:30)
[2022-01-17 11:04] VITALS: BP 113/73; PULSE 67; RESP 18; TEMP 36.3; O2SAT 97
== END 2022-01-17 07:55 | disposition home or self-care (01) ==
PROVIDERS: PCP Family Medicine; Referring Provider Internal Medicine Rheumatology; Visit Provider Internal Medicine Rheumatology
DX: M05.79 Rheumatoid arthritis with rheumatoid factor of multiple sites without organ or systems involvement (principal); Z79.52 Long term (current) use of systemic steroids; Z79.899 Other long term (current) drug therapy
CPT/HCPCS: 36593; J1200; J2920; J2997; J3262; J7050

== ENCOUNTER 2022-02-28 11:24 | Outpatient (CLI) | payer MEDICARE, OTHER, SELFPAY ==
[2022-02-28 11:33] VITALS: BP 116/74; PULSE 77; RESP 18; TEMP 36.1; O2SAT 99
[2022-02-28 12:09] LABS: Eosinophils # 0.2 10^3/uL (0.0-0.8); Eosinophils % 4.2 %; Hematocrit 34.2 % (37.0-47.0); Hemoglobin 11.4 g/dL (11.5-15.3); Lymphocytes # 0.7 10^3/uL (0.8-4.8); Lymphocytes % 18.6 %; Mean Corpuscular HGB Conc 33.3 g/dL (30.0-36.0); Mean Corpuscular Hemoglobin 30.2 pg (28.0-34.0); Mean Corpuscular Volume 90.5 fl (81-99); Mean Platelet Volume 10.7 fL (7.4-10.4); Monocytes # 0.4 10^3/uL (0.2-0.9); Neutrophils # 2.52 10^3/uL (1.8-7.7); Neutrophils % 66.2 %; Nucleated Red Blood Cells % 0 %; Platelet Count 206 10^3/cmm (130-400); Red Blood Count 3.78 10^6/uL (4.1-5.3); Red Cell Distribution Width 11.8 % (12.1-15.1); White Blood Count 3.8 10^3/uL (4.0-10.0)
[2022-02-28 12:12] LABS: Erythrocyte Sedimentation Rate 1 mm/hr (0-15)
[2022-02-28 12:26] LABS: Alanine Aminotransferase 19 U/L (0-33); Albumin Level 4.3 g/dL (3.5-5.2); Alkaline Phosphatase 51 IU/L (35-105); Aspartate Amino Transferase 23 U/L (0-32); Globulin 2.4 g/dL (1.3-4.6); Total Bilirubin 0.3 mg/dL (0.15-1.2); Total Protein 6.7 g/dL (6.6-8.7)
[2022-02-28 12:31] LABS: Creatinine Clr Calc Pharmacy 35.2805
[2022-02-28] MEDS: sodium chloride 0.9% 250 ML 50 ML IV (12:32)
[2022-02-28] MEDS: diphenhydrAMINE 50 mg/mL SDV 1mL 25 MG IVP (12:33)
[2022-02-28 13:50] VITALS: BP 122/72; PULSE 69; RESP 18; TEMP 35.9; O2SAT 99
== END 2022-02-28 11:25 | disposition home or self-care (01) ==
PROVIDERS: PCP Family Medicine; Referring Provider Internal Medicine Rheumatology; Visit Provider Internal Medicine Rheumatology
DX: D72.819 Decreased white blood cell count, unspecified; Z79.899 Other long term (current) drug therapy; G62.9 Polyneuropathy, unspecified; E78.00 Pure hypercholesterolemia, unspecified; I27.20 Pulmonary hypertension, unspecified; Z89.422 Acquired absence of other left toe(s); Z89.412 Acquired absence of left great toe; Z86.718 Personal history of other venous thrombosis and embolism; Z86.711 Personal history of pulmonary embolism; M05.79 Rheumatoid arthritis with rheumatoid factor of multiple sites without organ or systems involvement
CPT/HCPCS: 80076; 82565; 85025; 85651; 96365; 96375; 99214; J1200; J2920; J3262; J7050

== ENCOUNTER → 2022-03-05 08:49 | Outpatient (BNVA) | payer MEDICARE, OTHER, SELFPAY | PROVIDERS: PCP Family Medicine; Visit Provider Surgery | DX: Z45.2 Encounter for adjustment and management of vascular access device (principal); K63.5 Polyp of colon | CPT/HCPCS: 99204 ==

== ENCOUNTER 2022-03-11 05:37 | Day surgery (SDC) | payer MEDICARE, OTHER, SELFPAY ==
[2022-03-08 11:35] VITALS: BMI 22.3
[2022-03-11] VITALS (10 sets, daily range): BP systolic 106–160; BP diastolic 58–101; PULSE 69–81; RESP 12–43; TEMP 35.6–36.1; O2SAT 92–100
--- NOTE | 2022-03-11 | SCC_ITS ---
Procedure done: 1. Removal of PowerPort from the right subclavian vein 2. Venogram of superior vena cava 3. Fluoroscopic guidance and interpretation for placement of catheter 4. Ultrasound guidance to access the right femoral vein 5. Placement of PowerPort in the right femoral vein 265.9 seconds of fluoroscopic guidance, for a cumulative dose of 28.12 mGy, was provided to Dr. Gonzalez by the radiology department. C-arm images of the chest were saved for the patient's permanent record. DUSTIN
[2022-03-11] MEDS: sodium chloride 0.9% 1,000 ML 30 ML IV (06:41)
--- NOTE | 2022-03-11 06:50 | P.ANESASSM_ITS ---
Pre-Anesthetic Assessment Height/Weight: Height 1.63 m Weight 58.967 kg Temp Pulse Resp BP Pulse Ox 97 F L 81 17 160/85 100 03/11/22 06:05 03/11/22 06:05 03/11/22 06:05 03/11/22 06:05 03/11/22 06:05 Preop Diagnosis: Nonfunctioning Port-A-Cath Operation Date: 03/11/22 07:00 Proposed Procedures p [address] [place] [address] placement of port a cath Z45.2,Z12.11(Not Applicable) - Neil Gonzalez MD s Portacath Placement(Not Applicable) - Neil Gonzalez MD Last intake: Intake Last Liquid Date 03/10/22 Last Liquid Time 23:30 Last Solid Date 03/08/22 Last Solid Time 12:00 Anesthetic Plan ASA status: 3 Medications/Allergies Home Medications Medication Instructions Recorded Confirmed Last Taken Type apixaban 5 mg tablet (Eliquis) 5 mg PO BID 11/02/19 03/08/22 03/08/22 History cetirizine 10 mg tablet (Zyrtec) 5 mg PO DAILY 11/02/19 03/11/22 03/08/22 12:00 History docusate sodium 100 mg capsule 100 mg PO BID 11/02/19 03/11/22 03/08/22 12:00 History (Colace) furosemide 40 mg tablet (Lasix) 40 mg PO DAILY 11/02/19 03/11/22 03/08/22 12:00 History hydrocodone 5 mg-acetaminophen 325 1 tab PO Q4H PRN 11/02/19 03/11/22 Unknown History mg tablet ([place]) levothyroxine 50 mcg tablet 50 mcg PO DAILY 11/02/19 03/11/22 03/08/22 12:00 History (Synthroid) montelukast 10 mg tablet 10 mg PO DAILY 11/02/19 03/11/22 03/08/22 12:00 History (Singulair) piroxicam 20 mg capsule (Feldene) 20 mg PO DAILY 11/02/19 03/11/22 03/08/22 08:00 History folic acid 1 mg tablet 2 mg PO DAILY tab 08/09/20 03/11/22 03/08/22 12:00 History amitriptyline 50 mg tablet 150 mg PO .hs tab 01/31/21 03/11/22 03/08/22 12:00 History ascorbate calcium (vitamin C) 500 500 mg PO DAILY 01/31/21 03/11/22 03/08/22 12:00 History mg tablet calcium carb-vit D3-minerals 600 1 tab PO DAILY tab 01/31/21 03/11/22 03/08/22 12:00 History mg calcium-400 unit tablet furosemide 20 mg tablet 20 mg PO DAILY 01/31/21 03/11/22 Unknown History gabapentin 100 mg capsule 100 mg PO BID cap 01/31/21 03/11/22 03/08/22 12:00 History prednisone 2.5 mg tablet 2.5 mg PO DAILY PRN 01/31/21 03/08/22 Unknown History tocilizumab [Actemra] 520 mg IV DIRECTED 01/31/21 03/11/22 03/05/22 History diclofenac sodium 1 % topical gel 4 g TOPICAL QID #200 g 09/11/21 03/11/22 Unknown Rx Allergies Allergy/AdvReac Type Severity Reaction Status Date / Time acetaminophen AdvReac unknown Verified 03/08/22 11:16 [From Darvocet-N] infliximab [From Remicade] AdvReac Unknown Verified 03/08/22 11:16 meperidine [From Demerol] AdvReac Unknown Verified 03/08/22 11:16 propoxyphene AdvReac unknown Verified 03/08/22 11:16 [From Darvocet-N] Current Medications Generic Name Dose Route Start Last Admin Trade Name Freq PRN Reason Stop Dose Admin Sodium Chloride 1,000 mls @ 30 mls/hr 03/11/22 06:00 03/11/22 06:41 Sodium Chloride 0.9% IV 03/12/22 05:59 30 mls/hr .Q24H RENETTA Administration PFSH Anesthesia Medical History Colon polyps History of amputation of toe Hx of pulmonary embolus Leukopenia stable, chronic Rheumatoid arthritis with rheumatoid factor Surgical History History of appendectomy History of hysterectomy History of rotator cuff surgery History of tubal ligation Port-A-Cath in place Status post colonoscopy Family History Other Cancer Diabetes Hypertension Rheumatoid arthritis Denies family history of Lupus Social History Smoking and tobacco status: never smoked Alcohol intake: never Lives independently: Yes Household members: spouse Marital status: Current occupational status: retired and disabled History of recent travel: No Data Anesthesia Cardiac Studies: No Data to Display
--- NOTE | 2022-03-11 06:52 | P.HP_ITS ---
Same Day Surgery H&P Indication for Procedure/HPI DATE OF PROCEDURE: March 11, 2022 CHIEF COMPLAINT/INDICATIONFOR SURGICAL PROCEDURE: colonoscopy /port exchange PREOP DIAGNOSIS: Nonfunctioning Port-A-Cath PLANNED PROCEDURE: Operation Date: 03/11/22 07:00 Proposed Procedures p [address] [place] [address] placement of port a cath Z45.2,Z12.11(Not Appl icable) - Neil Gonzalez MD s Portacath Placement(Not Applicable) - Neil Gonzalez MD Medications/Allergies* Home Medications Medication Instructions Recorded Confirmed Type apixaban 5 mg tablet (Eliquis) 5 mg PO BID 11/02/19 03/08/22 History cetirizine 10 mg tablet (Zyrtec) 5 mg PO DAILY 11/02/19 03/11/22 History docusate sodium 100 mg capsule 100 mg PO BID 11/02/19 03/11/22 History (Colace) furosemide 40 mg tablet (Lasix) 40 mg PO DAILY 11/02/19 03/11/22 History hydrocodone 5 mg-acetaminophen 325 1 tab PO Q4H PRN 11/02/19 03/11/22 History mg tablet ([place]) levothyroxine 50 mcg tablet 50 mcg PO DAILY 11/02/19 03/11/22 History (Synthroid) montelukast 10 mg tablet 10 mg PO DAILY 11/02/19 03/11/22 History (Singulair) piroxicam 20 mg capsule (Feldene) 20 mg PO DAILY 11/02/19 03/11/22 History folic acid 1 mg tablet 2 mg PO DAILY tab 08/09/20 03/11/22 History amitriptyline 50 mg tablet 150 mg PO .hs tab 01/31/21 03/11/22 History ascorbate calcium (vitamin C) 500 500 mg PO DAILY 01/31/21 03/11/22 History mg tablet calcium carb-vit D3-minerals 600 1 tab PO DAILY tab 01/31/21 03/11/22 History mg calcium-400 unit tablet furosemide 20 mg tablet 20 mg PO DAILY 01/31/21 03/11/22 History gabapentin 100 mg capsule 100 mg PO BID cap 01/31/21 03/11/22 History prednisone 2.5 mg tablet 2.5 mg PO DAILY PRN 01/31/21 03/08/22 History tocilizumab [Actemra] 520 mg IV DIRECTED 01/31/21 03/11/22 History Allergies/Adverse Reactions Allergy/AdvReac Type Severity Reaction Status Date / Time acetaminophen AdvReac unknown Verified 03/08/22 11:16 [From Darvocet-N] infliximab [From Remicade] AdvReac Unknown Verified 03/08/22 11:16 meperidine [From Demerol] AdvReac Unknown Verified 03/08/22 11:16 propoxyphene AdvReac unknown Verified 03/08/22 11:16 [From Darvocet-N] Current Medications: Generic Name Dose Route Start Last Admin Trade Name Freq PRN Reason Stop Dose Admin Sodium Chloride 1,000 mls @ 30 mls/hr 03/11/22 06:00 03/11/22 06:41 Sodium Chloride 0.9% IV 03/12/22 05:59 30 mls/hr .Q24H RENETTA Administration Pertinent History/Comorbid Conditions* Medical History (Updated 03/07/22 @ 07:05 by Neil Gonzalez MD) Colon polyps History of amputation of toe Hx of pulmonary embolus Leukopenia stable, chronic Rheumatoid arthritis with rheumatoid factor Surgical History (Updated 03/07/22 @ 07:05 by Neil Gonzalez MD) History of appendectomy History of hysterectomy History of rotator cuff surgery History of tubal ligation Port-A-Cath in place Status post colonoscopy Family History (Updated 11/03/19 @ 10:05 by Allyn Dave LPN) Rheumatoid arthritis Diabetes Cancer Hypertension Denies family history of Lupus Social History Smoking and tobacco status: never smoked Alcohol intake: never Lives independently: Yes Household members: spouse Marital status: Current occupational status: retired and disabled History of recent travel: No Pertinent Exam Findings alert, oriented x 3 and regular rate & rhythm Recommendations Surgery/Procedure today Coding Level of Care Code 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
--- NOTE | 2022-03-11 07:20 | SC_ITS ---
WS: [id number] Exam: C-arm FL for CVA [id number] Date/Time of Exam: 03/11/2022 9:33 AM Reason For Exam: PORTACATHETER REPLACEMENT A Port-A-Cath has been placed and enters from the right femoral approach and likely ends in the midpo rtion of the inferior vena cava. Also noted is a right subclavian port probably ends in the lower one third of the SVC.
[2022-03-11] MEDS: lidocaine 2% INJ 20 mL INJECTION (07:50)
[2022-03-11] MEDS: heparin, porcine 1,000 unit/mL INJ 10 mL 10000 UNIT INJECTION (08:00)
--- NOTE | 2022-03-11 08:47 | SUR.OPER ---
50ML OMNIPAQUE LOT [id number] EXP 10/04/24 MIXED WITH 50ML SALINE TO STERILE FIELD. 8ML USED PER DR. LEGGETT
--- NOTE | 2022-03-11 09:35 | SUR.PHASEI ---
patient into pacu awake, shivering. warm blankets placed on patient. dressing dry and intact. pt states no pain. abd soft.
--- NOTE | 2022-03-11 09:39 | P.OP_ITS ---
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 Removal of PowerPort from the right subclavian vein 2. Venogram of superior vena cava 3. Fluoroscopic guidance and interpretation for placement of catheter 4. Ultrasound guidance to access the right femoral vein 5. Placement of PowerPort in the right femoral vein Pathology: none sent Surgeon: Neil Gonzalez Anesthesia: MAC Condition: stable Disposition: PACU Procedure: The patient was taken to the Operating Room and the chest and neck bilaterally were prepped and draped in a sterile manner after the antibiotic had been administered and shoulder rolls had been placed. 1% lidocaine with 0.25% Marcaine was infiltrated around the existing port on the right chest and the scar on the right chest was opened using 15 blade, subcutaneous tissue was divided using electrocautery and the port was dissected free from the surrounding subcutaneous tissue. A stab incision was made at the site of entry of the catheter into the right subclavian vein. Fluoroscopy showed that the tip of the previously placed PowerPort was in the right subclavian vein. The catheter was dissected free from surrounding subcutaneous tissue, cut and a guidewire was passed under fluoroscopy through the distal end of the catheter into the superior vena cava. The wire would not advanced into the right atrium. 0.035 inch J-wire was used to attempt passing the guidewire past the SVC stenosis and this too was unsuccessful. 20 cc of saline mixed with 20 cc of Omnipaque was injected through the existing catheter after the guidewire was removed and this revealed stenosis of the SVC with prominent azygous vein. At this point I discussed the findings with the christopher malave's and he agreed to me proceeding with placement of the catheter in the femoral vein. The guidewire was removed from the right subclavian vein and the subcutaneous tissue at the port site on the right chest was closed using running 3-0 Vicryl suture and skin at the stab incision in the right chest as well as at the port site was closed using running subcuticular 4-0 Monocryl suture and Dermabond. An ultrasound of the right femoral jugular vein revealed patent flow, no thrombus. An introducer needle was then used to access the right internal jugular vein and after withdrawing blood syringe was removed and a guidewire passed under fluoroscopy into the superior vena cava. 1% lidocaine with 0.25% Marcaine was infiltrated at the site of the planned catheter placement. The si te of the planned port was marked on the right thigh and a 15 blade was used to make a 3 cm skin incision this was extended into the subcutaneous tissue using electrocautery and a subcutaneous pocket over the muscular fascia was created 2- 0 Vicryl suture was used to suture the port to the muscular fascia in the pocket on 3 sides. The catheter, after having been flushed with hep saline, was attached to the tunneler and a tunnel created between the port site and the right femoral vein entry site. Under fluoroscopy the dilator sheath was passed over the guidewire into the proximal inferior vena cava. The inner dilator was removed and the sheath left behind and the catheter was introduced through the peel-away sheath with the tip in the inferior vena cava. The peel-away sheath was removed. The proximal end of the catheter was cut to the right size and was attached to the port. Using a Weaver needle the port was accessed, it withdrew blood easily and flushed easily. A final 5cc of heparin was used to flush the PowerPort. The subcutaneous tissue was approximated using interrupted 3-0 Vicryl sutures and the skin at the introducer site and the port site was closed using subcuticular running 4-0 Monocryl sutures. Surgical glue was applied and the patient was stable throughout the procedure. Fluoroscopic guidance and interpretation was performed for introduction of the guidewire in the right internal jugular vein, passage of dilator and placement of catheter tip in the distal superior vena cava
--- NOTE | 2022-03-11 13:46 | ANE.PACU2 ---
Inpatient post-anesthesia follow up: Airway intact: Yes Vital signs: Temperature 96.7 F Pulse Rate 72 Respiratory Rate 16 Blood Pressure 128/72 Pulse Oximetry 99 Oxygen Delivery Me thod Room Air Oxygen Flow Rate Fraction of Inspir ed Oxygen Hydration adequate: Yes Nausea and vomiting: No Pain level: 1 Mental status: Baseline
== END 2022-03-11 10:35 | disposition home or self-care (01) ==
PROVIDERS: PCP Family Medicine; Visit Provider Surgery
PROC: 0DJD8ZZ Inspection of Lower Intestinal Tract, Via Natural or Artificial Opening Endoscopic (ICD-10-PCS; CPT 45378; principal; 2022-03-11 07:00)
PROC: (CPT 36561; 2022-03-11 07:00)
DX: Z45.2 Encounter for adjustment and management of vascular access device (principal); Z86.010 Personal history of colon polyps; Z86.711 Personal history of pulmonary embolism; M06.9 Rheumatoid arthritis, unspecified
CPT/HCPCS: 36561; 36590; 76000; 77001; C1788; J1644; J2704; J3490; J7030

== ENCOUNTER → 2022-03-26 08:11 | Outpatient (BNVA) | payer MEDICARE, OTHER, SELFPAY | PROVIDERS: PCP Family Medicine; Visit Provider Surgery | DX: Z95.828 Presence of other vascular implants and grafts (principal); Z12.11 Encounter for screening for malignant neoplasm of colon; Z80.0 Family history of malignant neoplasm of digestive organs | CPT/HCPCS: 99213 ==

== ENCOUNTER 2022-04-02 07:41 | Outpatient (CLI) | payer MEDICARE, OTHER, SELFPAY ==
[2022-04-02 07:49] VITALS: BP 109/71; PULSE 72; RESP 18; TEMP 36.1; O2SAT 98
[2022-04-02] MEDS: sodium chloride 0.9% 250 ML 50 ML IV (08:21)
[2022-04-02] MEDS: diphenhydrAMINE 50 mg/mL SDV 1mL 25 MG IVP (08:22)
[2022-04-02 09:43] VITALS: BP 110/69; PULSE 69; RESP 18; TEMP 36.2; O2SAT 99
== END 2022-04-02 07:42 | disposition home or self-care (01) ==
PROVIDERS: PCP Family Medicine; Referring Provider Internal Medicine Rheumatology; Visit Provider Internal Medicine Rheumatology
DX: M05.79 Rheumatoid arthritis with rheumatoid factor of multiple sites without organ or systems involvement (principal)
CPT/HCPCS: 96365; 96375; J1200; J2920; J3262; J7050

== ENCOUNTER 2022-04-24 09:50 | Outpatient (CLI) | payer MEDICARE, OTHER, SELFPAY ==
--- NOTE | 2022-04-24 10:03 | US_ITS ---
WS: [id number] ULTRASOUND SOFT TISSUES RIGHT chest wall. HISTORY: Soft tissue swelling involving the RIGHT chest at the site of recent Port-A-Cath removal. COMPARISON: None available. TECHNIQUE: 2-D and color Doppler imaging is submitted. There is a complex ovoid collection along the RIGHT anterior chest wall measuring 2.6 x 1.9 cm and ex tending over length of 4.6 cm. Variable echogenicity and findings are consistent with a hematoma. On several of the images there is a tract that extends superficially through the soft tissues. This does appear to be the site of the Port-A-Cath removal. No increased vascularity within the hematoma. US/US chest [id number] IMPRESSION: Hematoma over the RIGHT anterior chest wall at the site of the Port-A-Cath thomas ramonita.
== END 2022-04-24 09:51 | disposition home or self-care (01) ==
LOC: RAD 09:51
PROVIDERS: PCP Family Medicine; Visit Provider Surgery
DX: M79.89 Other specified soft tissue disorders (principal)
CPT/HCPCS: 76604

== ENCOUNTER 2022-04-30 07:39 | Outpatient (CLI) | payer MEDICARE, OTHER, SELFPAY ==
[2022-04-30 07:48] VITALS: BP 99/64; PULSE 62; RESP 18; TEMP 36.2; O2SAT 99
[2022-04-30 08:15] LABS: Basophils # 0.1 10^3/uL (0.0-0.1); Basophils % 1.3 %; Eosinophils # 0.2 10^3/uL (0.0-0.8); Eosinophils % 5.1 %; Hematocrit 33.3 % (37.0-47.0); Hemoglobin 10.9 g/dL (11.5-15.3); Lymphocytes # 0.6 10^3/uL (0.8-4.8); Lymphocytes % 14.4 %; Mean Corpuscular HGB Conc 32.7 g/dL (30.0-36.0); Mean Corpuscular Hemoglobin 30.4 pg (28.0-34.0); Mean Platelet Volume 10.7 fL (7.4-10.4); Monocytes # 0.4 10^3/uL (0.2-0.9); Monocytes % 11.3 %; Neutrophils # 2.63 10^3/uL (1.8-7.7); Neutrophils % 67.6 %; Nucleated Red Blood Cells % 0 %; Platelet Count 187 10^3/cmm (130-400); Red Blood Count 3.58 10^6/uL (4.1-5.3); Red Cell Distribution Width 11.7 % (12.1-15.1); White Blood Count 3.9 10^3/uL (4.0-10.0)
[2022-04-30] MEDS: sodium chloride 0.9% 250 ML 50 ML IV (08:22)
[2022-04-30] MEDS: diphenhydrAMINE 50 mg/mL SDV 1mL 25 MG IVP (08:23)
[2022-04-30 08:26] LABS: Erythrocyte Sedimentation Rate 1 mm/hr (0-15)
[2022-04-30 08:37] LABS: Alanine Aminotransferase 15 U/L (0-33); Albumin Level 4.2 g/dL (3.5-5.2); Alkaline Phosphatase 47 IU/L (35-105); Aspartate Amino Transferase 23 U/L (0-32); Total Bilirubin 0.2 mg/dL (0.15-1.2); Total Protein 6.2 g/dL (6.6-8.7)
[2022-04-30 09:40] VITALS: BP 115/69; PULSE 62; RESP 18; TEMP 36.2; O2SAT 98
== END 2022-04-30 07:40 | disposition home or self-care (01) ==
PROVIDERS: PCP Family Medicine; Referring Provider Internal Medicine Rheumatology; Visit Provider Internal Medicine Rheumatology
DX: M05.79 Rheumatoid arthritis with rheumatoid factor of multiple sites without organ or systems involvement (principal); Z79.899 Other long term (current) drug therapy
CPT/HCPCS: 80076; 82565; 85025; 85651; 96365; 96375; J1200; J2920; J3262; J7050

== ENCOUNTER 2022-05-28 07:56 | Outpatient (CLI) | payer MEDICARE, OTHER, SELFPAY ==
[2022-05-28 08:03] VITALS: BP 137/81; PULSE 78; RESP 18; TEMP 36; O2SAT 96
[2022-05-28] MEDS: sodium chloride 0.9% 250 ML 50 ML IV (08:34)
[2022-05-28] MEDS: diphenhydrAMINE 50 mg/mL SDV 1mL 25 MG IVP (08:35)
[2022-05-28 09:47] VITALS: BP 116/67; PULSE 65; RESP 18; TEMP 36; O2SAT 100
== END 2022-05-28 07:57 | disposition home or self-care (01) ==
PROVIDERS: PCP Family Medicine; Visit Provider Internal Medicine Rheumatology
DX: M05.79 Rheumatoid arthritis with rheumatoid factor of multiple sites without organ or systems involvement (principal)
CPT/HCPCS: 96365; 96375; J1200; J2920; J3262; J7050

== ENCOUNTER 2022-06-25 07:46 | Outpatient (CLI) | payer MEDICARE, OTHER, SELFPAY ==
[2022-06-25 08:29] LABS: Erythrocyte Sedimentation Rate < 1 mm/hr (0-15)
[2022-06-25 08:31] LABS: Basophils % 0.9 %; Eosinophils # 0.2 10^3/uL (0.0-0.8); Eosinophils % 5.9 %; Hematocrit 33.9 % (37.0-47.0); Lymphocytes # 0.7 10^3/uL (0.8-4.8); Lymphocytes % 19.4 %; Mean Corpuscular HGB Conc 32.4 g/dL (30.0-36.0); Mean Corpuscular Hemoglobin 30.5 pg (28.0-34.0); Mean Corpuscular Volume 93.9 fl (81-99); Mean Platelet Volume 10.3 fL (7.4-10.4); Monocytes # 0.4 10^3/uL (0.2-0.9); Monocytes % 11.2 %; Neutrophils # 2.12 10^3/uL (1.8-7.7); Neutrophils % 62.3 %; Nucleated Red Blood Cells % 0 %; Platelet Count 208 10^3/cmm (130-400); Red Blood Count 3.61 10^6/uL (4.1-5.3); Red Cell Distribution Width 12.2 % (12.1-15.1); White Blood Count 3.4 10^3/uL (4.0-10.0)
[2022-06-25] MEDS: acetaminophen 325 mg Tablet 650 MG PO (08:34)
[2022-06-25] MEDS: diphenhydrAMINE 50 mg/mL SDV 1mL 25 MG IV (08:35)
[2022-06-25] MEDS: sodium chloride 0.9% 250 ML IV (08:35)
[2022-06-25 08:45] VITALS: BP 107/67; PULSE 72; RESP 16; TEMP 36.6; O2SAT 98
[2022-06-25 08:55] LABS: Alanine Aminotransferase 15 U/L (0-33); Albumin Level 4.1 g/dL (3.5-5.2); Alkaline Phosphatase 49 U/L (35-105); Aspartate Amino Transferase 21 U/L (0-32); Globulin 2.3 g/dL (1.3-4.6); Total Bilirubin 0.2 mg/dL (0.15-1.2); Total Protein 6.4 g/dL (6.6-8.7)
[2022-06-25 10:30] VITALS: BP 107/67; PULSE 72; RESP 16; TEMP 36.4; O2SAT 98
== END 2022-06-25 07:47 | disposition home or self-care (01) ==
PROVIDERS: PCP Family Medicine; Visit Provider Internal Medicine Rheumatology
DX: M05.79 Rheumatoid arthritis with rheumatoid factor of multiple sites without organ or systems involvement (principal); Z79.899 Other long term (current) drug therapy; D72.819 Decreased white blood cell count, unspecified; Z89.422 Acquired absence of other left toe(s); Z89.412 Acquired absence of left great toe; Z86.718 Personal history of other venous thrombosis and embolism; Z86.711 Personal history of pulmonary embolism; Z79.01 Long term (current) use of anticoagulants; I27.20 Pulmonary hypertension, unspecified; G62.9 Polyneuropathy, unspecified; E78.00 Pure hypercholesterolemia, unspecified
CPT/HCPCS: 80076; 82565; 85025; 85651; 96365; 96375; 99214; J1200; J2920; J3262; J7050

== ENCOUNTER 2022-07-24 07:57 | Outpatient (CLI) | payer MEDICARE, OTHER, SELFPAY ==
[2022-07-24 08:05] VITALS: BP 101/68; PULSE 68; RESP 16; TEMP 36.2; O2SAT 99
[2022-07-24 08:39] LABS: Basophils # 0.1 10^3/uL (0.0-0.1); Basophils % 1.7 %; Eosinophils # 0.2 10^3/uL (0.0-0.8); Eosinophils % 6.9 %; Hematocrit 33.9 % (37.0-47.0); Hemoglobin 11.4 g/dL (11.5-15.3); Lymphocytes # 0.6 10^3/uL (0.8-4.8); Lymphocytes % 22.2 %; Mean Corpuscular HGB Conc 33.6 g/dL (30.0-36.0); Mean Corpuscular Hemoglobin 31.2 pg (28.0-34.0); Mean Corpuscular Volume 92.9 fl (81-99); Mean Platelet Volume 10.3 fL (7.4-10.4); Monocytes # 0.4 10^3/uL (0.2-0.9); Monocytes % 14.2 %; Neutrophils # 1.58 10^3/uL (1.8-7.7); Nucleated Red Blood Cells % 0 %; Platelet Count 180 10^3/cmm (130-400); Red Blood Count 3.65 10^6/uL (4.1-5.3); Red Cell Distribution Width 11.9 % (12.1-15.1); White Blood Count 2.9 10^3/uL (4.0-10.0)
[2022-07-24] MEDS: diphenhydrAMINE 50 mg/mL SDV 1mL 25 MG IVP (08:43)
[2022-07-24] MEDS: sodium chloride 0.9% 250 ML 50 ML IV (08:43)
[2022-07-24 08:56] LABS: Erythrocyte Sedimentation Rate < 1 mm/hr (0-15)
[2022-07-24 08:57] LABS: Alanine Aminotransferase 16 U/L (0-33); Albumin Level 4.2 g/dL (3.5-5.2); Alkaline Phosphatase 51 U/L (35-105); Aspartate Amino Transferase 24 U/L (0-32); Globulin 2.1 g/dL (1.3-4.6); Total Bilirubin 0.3 mg/dL (0.15-1.2); Total Protein 6.3 g/dL (6.6-8.7)
[2022-07-24 10:01] VITALS: BP 103/65; PULSE 65; RESP 16; TEMP 36.4; O2SAT 96
== END 2022-07-24 07:58 | disposition home or self-care (01) ==
PROVIDERS: PCP Family Medicine; Visit Provider Internal Medicine Rheumatology
DX: M05.79 Rheumatoid arthritis with rheumatoid factor of multiple sites without organ or systems involvement (principal); Z79.899 Other long term (current) drug therapy
CPT/HCPCS: 80076; 82565; 85025; 85651; 96365; 96375; J1200; J2920; J3262; J7050

== ENCOUNTER 2022-09-10 07:47 | Outpatient (CLI) | payer MEDICARE, OTHER, SELFPAY ==
[2022-09-10 07:59] VITALS: BP 121/78; PULSE 73; RESP 18; TEMP 36.1; O2SAT 98
[2022-09-10] MEDS: sodium chloride 0.9% 250 ML 50 ML IV (08:29)
[2022-09-10] MEDS: diphenhydrAMINE 50 mg/mL SDV 1mL 25 MG IVP (08:30)
[2022-09-10 08:46] LABS: Alanine Aminotransferase 15 U/L (0-33); Alkaline Phosphatase 53 U/L (35-105); Anion Gap 9.5 (5-19); Aspartate Amino Transferase 21 U/L (0-32); Blood Urea Nitrogen 20 mg/dL (8-23); Carbon Dioxide 29 mmol/L (22-29); Chloride 100 mmol/L (98-107); Globulin 2.4 g/dL (1.3-4.6); Glucose 121 mg/dL (65-115); Osmolality Calculated 284 mOsm/kg (285-295); Potassium 3.5 mmol/L (3.5-5.1); Sodium 135 mmol/L (136-145); Thyroid Stimulating Hormone 0.33 uIU/mL (0.27-4.20); Total Bilirubin 0.3 mg/dL (0.15-1.2); Total Protein 6.4 g/dL (6.6-8.7)
[2022-09-10 09:09] LABS: Free T4 Free Thyroxine 1.11 ng/dL (0.82-1.77)
[2022-09-10 09:43] VITALS: BP 119/76; PULSE 66; RESP 18; TEMP 36.1; O2SAT 97
[2022-09-10 11:10] LABS: 25 Hydroxy Vitamin D 39 ng/mL (30-100)
== END 2022-09-10 07:48 | disposition home or self-care (01) ==
LOC: ONCMED 07:48
PROVIDERS: PCP Family Medicine; Visit Provider Internal Medicine Rheumatology
DX: M05.79 Rheumatoid arthritis with rheumatoid factor of multiple sites without organ or systems involvement (principal); Z79.899 Other long term (current) drug therapy
CPT/HCPCS: 80053; 82306; 84439; 84443; 96365; 96375; J1200; J2920; J3262; J7050

== ENCOUNTER 2022-10-09 07:42 | Outpatient (CLI) | payer MEDICARE, OTHER, SELFPAY ==
[2022-10-09 08:12] VITALS: BP 96/61; PULSE 71; RESP 18; TEMP 36.3; O2SAT 98
[2022-10-09 08:15] LABS: Basophils % 0.9 %; Eosinophils # 0.2 10^3/uL (0.0-0.8); Eosinophils % 4.2 %; Hematocrit 34.9 % (37.0-47.0); Hemoglobin 11.3 g/dL (11.5-15.3); Lymphocytes # 0.8 10^3/uL (0.8-4.8); Lymphocytes % 17.4 %; Mean Corpuscular HGB Conc 32.4 g/dL (30.0-36.0); Mean Corpuscular Hemoglobin 29.9 pg (28.0-34.0); Mean Corpuscular Volume 92.3 fl (81-99); Mean Platelet Volume 10.4 fL (7.4-10.4); Monocytes # 0.5 10^3/uL (0.2-0.9); Monocytes % 11.1 %; Neutrophils # 2.86 10^3/uL (1.8-7.7); Neutrophils % 66.4 %; Nucleated Red Blood Cells % 0 %; Platelet Count 200 10^3/cmm (130-400); Red Blood Count 3.78 10^6/uL (4.1-5.3); Red Cell Distribution Width 11.9 % (12.1-15.1); White Blood Count 4.3 10^3/uL (4.0-10.0)
[2022-10-09 08:25] LABS: Erythrocyte Sedimentation Rate 1 mm/hr (0-15)
[2022-10-09] MEDS: sodium chloride 0.9% 250 ML 50 ML IV (08:27)
[2022-10-09 08:28] LABS: Alanine Aminotransferase 15 U/L (0-33); Albumin Level 4.1 g/dL (3.5-5.2); Alkaline Phosphatase 57 U/L (35-105); Aspartate Amino Transferase 22 U/L (0-32); Globulin 2.5 g/dL (1.3-4.6); Total Bilirubin 0.3 mg/dL (0.15-1.2); Total Protein 6.6 g/dL (6.6-8.7)
[2022-10-09] MEDS: diphenhydrAMINE 50 mg/mL SDV 1mL 25 MG IVP (08:28)
[2022-10-09 09:55] VITALS: BP 99/59; PULSE 67; RESP 18; TEMP 36.1; O2SAT 98
== END 2022-10-09 07:43 | disposition home or self-care (01) ==
LOC: ONCMED 07:42
PROVIDERS: PCP Family Medicine; Visit Provider Internal Medicine Rheumatology
DX: M05.79 Rheumatoid arthritis with rheumatoid factor of multiple sites without organ or systems involvement (principal); Z79.899 Other long term (current) drug therapy
CPT/HCPCS: 80076; 82565; 85025; 85651; 96365; 96375; J1200; J2920; J3262; J7050

== ENCOUNTER 2022-11-06 08:12 | Outpatient (CLI) | payer MEDICARE, OTHER, SELFPAY ==
[2022-11-06 08:39] VITALS: BP 101/62; PULSE 78; RESP 18; TEMP 36.7
[2022-11-06] MEDS: sodium chloride 0.9% 250 ML 50 ML IV (09:09)
[2022-11-06] MEDS: diphenhydrAMINE 50 mg/mL SDV 1mL 25 MG IVP (09:10)
[2022-11-06 10:20] VITALS: BP 122/76; PULSE 71; RESP 18; TEMP 36.4; O2SAT 98
== END 2022-11-06 08:13 | disposition home or self-care (01) ==
PROVIDERS: PCP Family Medicine; Visit Provider Internal Medicine Rheumatology
DX: M05.79 Rheumatoid arthritis with rheumatoid factor of multiple sites without organ or systems involvement (principal)
CPT/HCPCS: 96365; 96375; J1200; J2920; J3262; J7050

== ENCOUNTER 2022-12-04 07:53 | Oncology outpatient (recurring) (ONCR) | payer MEDICARE, OTHER, SELFPAY ==
[2022-12-04 08:09] VITALS: BP 104/68; PULSE 70; RESP 16; TEMP 35.8; O2SAT 96
[2022-12-04 08:32] LABS: Basophils # 0.1 10^3/uL (0.0-0.1); Basophils % 1.6 %; Eosinophils # 0.2 10^3/uL (0.0-0.8); Hematocrit 35.4 % (37.0-47.0); Hemoglobin 11.5 g/dL (11.5-15.3); Lymphocytes # 0.7 10^3/uL (0.8-4.8); Lymphocytes % 20.5 %; Mean Corpuscular HGB Conc 32.5 g/dL (30.0-36.0); Mean Corpuscular Volume 92.4 fl (81-99); Mean Platelet Volume 10.6 fL (7.4-10.4); Monocytes # 0.4 10^3/uL (0.2-0.9); Monocytes % 11.4 %; Neutrophils # 1.95 10^3/uL (1.8-7.7); Neutrophils % 61.5 %; Nucleated Red Blood Cells % 0 %; Platelet Count 216 10^3/cmm (130-400); Red Blood Count 3.83 10^6/uL (4.1-5.3); Red Cell Distribution Width 11.8 % (12.1-15.1); White Blood Count 3.2 10^3/uL (4.0-10.0)
[2022-12-04 08:46] LABS: Erythrocyte Sedimentation Rate 1 mm/hr (0-15)
[2022-12-04] MEDS: sodium chloride 0.9% 250 ML 75 ML IV (08:56)
[2022-12-04] MEDS: acetaminophen 325 mg Tablet 650 MG PO (08:56)
[2022-12-04] MEDS: diphenhydrAMINE 50 mg/mL SDV 1mL 25 MG IVP (08:57)
[2022-12-04 09:21] LABS: Alanine Aminotransferase 14 U/L (0-33); Albumin Level 4.2 g/dL (3.5-5.2); Alkaline Phosphatase 53 U/L (35-105); Aspartate Amino Transferase 26 U/L (0-32); Globulin 2.4 g/dL (1.3-4.6); Total Bilirubin 0.3 mg/dL (0.15-1.2); Total Protein 6.6 g/dL (6.6-8.7)
[2022-12-04] MEDS: SODIUM CHLORIDE 0.9% IV (09:22)
[2022-12-04] MEDS: TOCILIZUMAB IV (09:22)
[2022-12-04 10:19] VITALS: BP 103/64; PULSE 61; RESP 16; TEMP 35.8; O2SAT 99
== END 2022-12-20 23:59 | disposition home or self-care (01) ==
PROVIDERS: PCP Family Medicine; Visit Provider Internal Medicine Rheumatology
DX: Z51.12 Encounter for antineoplastic immunotherapy (principal); M05.79 Rheumatoid arthritis with rheumatoid factor of multiple sites without organ or systems involvement
CPT/HCPCS: 80076; 82565; 85025; 85651; 96365; 96375; J1200; J2920; J3262; J7050

== ENCOUNTER 2023-01-06 07:46 | Oncology outpatient (recurring) (ONCR) | payer MEDICARE, OTHER, SELFPAY ==
[2023-01-06 08:10] VITALS: BP 111/71; PULSE 74; RESP 18; TEMP 36.1; O2SAT 96
[2023-01-06] MEDS: sodium chloride 0.9% 250 ML 75 ML IV (08:24)
[2023-01-06] MEDS: diphenhydrAMINE 50 mg/mL SDV 1mL 25 MG IVP (08:25)
[2023-01-06] MEDS: SODIUM CHLORIDE 0.9% IV (09:18)
[2023-01-06] MEDS: TOCILIZUMAB IV (09:18)
[2023-01-06 10:25] VITALS: BP 100/65; PULSE 73; RESP 18; TEMP 36.4; O2SAT 99
== END 2023-01-19 23:59 | disposition home or self-care (01) ==
PROVIDERS: PCP Family Medicine; Visit Provider Internal Medicine Rheumatology
DX: M05.9 Rheumatoid arthritis with rheumatoid factor, unspecified (principal)
CPT/HCPCS: 96365; 96375; 96413; J1200; J2920; J3262; J7050

== ENCOUNTER 2023-02-06 07:54 | Oncology outpatient (recurring) (ONCR) | payer MEDICARE, OTHER, SELFPAY ==
[2023-02-06 08:22] VITALS: BP 104/68; PULSE 82; RESP 18; TEMP 36.4; O2SAT 95
[2023-02-06 08:28] LABS: Basophils # 0.1 10^3/uL (0.0-0.1); Basophils % 1.7 %; Eosinophils # 0.1 10^3/uL (0.0-0.8); Eosinophils % 3.6 %; Hematocrit 36.2 % (37.0-47.0); Hemoglobin 11.7 g/dL (11.5-15.3); Lymphocytes # 0.6 10^3/uL (0.8-4.8); Lymphocytes % 15.6 %; Mean Corpuscular HGB Conc 32.3 g/dL (30.0-36.0); Mean Corpuscular Hemoglobin 30.1 pg (28.0-34.0); Mean Corpuscular Volume 93.1 fl (81-99); Mean Platelet Volume 10.1 fL (7.4-10.4); Monocytes # 0.4 10^3/uL (0.2-0.9); Monocytes % 10.9 %; Neutrophils # 2.44 10^3/uL (1.8-7.7); Neutrophils % 68.2 %; Nucleated Red Blood Cells % 0 %; Platelet Count 209 10^3/cmm (130-400); Red Blood Count 3.89 10^6/uL (4.1-5.3); Red Cell Distribution Width 11.7 % (12.1-15.1); White Blood Count 3.6 10^3/uL (4.0-10.0)
[2023-02-06] MEDS: sodium chloride 0.9% 250 ML 50 ML IV (08:33)
[2023-02-06] MEDS: diphenhydrAMINE 50 mg/mL SDV 1mL 25 MG IVP (08:34)
[2023-02-06] MEDS: dexamethasone 10 mg/mL INJ 6 MG IVP (08:37)
[2023-02-06 09:05] LABS: Alanine Aminotransferase 21 U/L (0-33); Albumin Level 4.4 g/dL (3.5-5.2); Alkaline Phosphatase 57 U/L (35-105); Aspartate Amino Transferase 24 U/L (0-32); Globulin 2.2 g/dL (1.3-4.6); Total Bilirubin 0.2 mg/dL (0.15-1.2); Total Protein 6.6 g/dL (6.6-8.7)
[2023-02-06] MEDS: TOCILIZUMAB IV (09:54)
[2023-02-06] MEDS: SODIUM CHLORIDE 0.9% IV (09:54)
[2023-02-06 11:16] VITALS: BP 120/69; PULSE 76; RESP 18; TEMP 36.1; O2SAT 99
== END 2023-02-19 23:59 | disposition home or self-care (01) ==
PROVIDERS: PCP Family Medicine; Visit Provider Internal Medicine Rheumatology
DX: M05.9 Rheumatoid arthritis with rheumatoid factor, unspecified (principal)
CPT/HCPCS: 80076; 82565; 85025; 86140; 96361; 96365; 96375; 96413; J1100; J1200; J1642; J3262; J7050

== ENCOUNTER 2023-03-06 07:59 | Oncology outpatient (recurring) (ONCR) | payer MEDICARE, OTHER, SELFPAY ==
[2023-03-06 08:30] VITALS: BP 105/63; PULSE 75; RESP 16; TEMP 35.9; O2SAT 96
[2023-03-06] MEDS: acetaminophen 325 mg Tablet 650 MG PO (09:04)
[2023-03-06] MEDS: sodium chloride 0.9% 250 ML 75 ML IV (09:05)
[2023-03-06] MEDS: diphenhydrAMINE 50 mg/mL SDV 1mL 25 MG IVP (09:05)
[2023-03-06] MEDS: TOCILIZUMAB IV (09:13)
[2023-03-06] MEDS: SODIUM CHLORIDE 0.9% IV (09:13)
[2023-03-06 10:23] VITALS: BP 110/67; PULSE 73; RESP 16; TEMP 36.4; O2SAT 98
== END 2023-03-21 23:59 | disposition home or self-care (01) ==
PROVIDERS: PCP Family Medicine; Visit Provider Internal Medicine Rheumatology
DX: M05.9 Rheumatoid arthritis with rheumatoid factor, unspecified (principal)
CPT/HCPCS: 96365; 96375; J1200; J1642; J3262; J7050

== ENCOUNTER 2023-04-03 08:09 | Oncology outpatient (recurring) (ONCR) | payer MEDICARE, OTHER, SELFPAY ==
[2023-04-03 08:21] VITALS: BP 100/60; PULSE 72; RESP 16; TEMP 35.8; O2SAT 96
[2023-04-03] MEDS: sodium chloride 0.9% 250 ML 75 ML IV (08:28)
[2023-04-03] MEDS: diphenhydrAMINE 50 mg/mL SDV 1mL 25 MG IVP (08:28)
[2023-04-03] MEDS: SODIUM CHLORIDE 0.9% IV (08:48)
[2023-04-03] MEDS: TOCILIZUMAB IV (08:48)
[2023-04-03 10:05] VITALS: BP 100/51; PULSE 66; RESP 18; TEMP 36.4; O2SAT 99
== END 2023-04-21 23:59 | disposition home or self-care (01) ==
PROVIDERS: PCP Family Medicine; Visit Provider Internal Medicine Rheumatology
DX: M05.9 Rheumatoid arthritis with rheumatoid factor, unspecified (principal)
CPT/HCPCS: 96375; 96413; J1200; J1642; J3262; J7050

== ENCOUNTER 2023-05-12 07:48 | Oncology outpatient (recurring) (ONCR) | payer MEDICARE, OTHER, SELFPAY ==
[2023-05-12 08:09] VITALS: BMI 21.8
[2023-05-12 08:45] LABS: Basophils # 0.1 10^3/uL (0.0-0.1); Basophils % 1.4 %; Eosinophils # 0.3 10^3/uL (0.0-0.8); Eosinophils % 7.1 %; Hematocrit 32.9 % (37.0-47.0); Hemoglobin 10.5 g/dL (11.5-15.3); Lymphocytes # 0.6 10^3/uL (0.8-4.8); Mean Corpuscular HGB Conc 31.9 g/dL (30.0-36.0); Mean Corpuscular Hemoglobin 30.2 pg (28.0-34.0); Mean Corpuscular Volume 94.5 fl (81-99); Mean Platelet Volume 10.6 fL (7.4-10.4); Monocytes # 0.4 10^3/uL (0.2-0.9); Monocytes % 9.5 %; Neutrophils # 2.43 10^3/uL (1.8-7.7); Nucleated Red Blood Cells % 0 %; Platelet Count 191 10^3/cmm (130-400); Red Blood Count 3.48 10^6/uL (4.1-5.3); Red Cell Distribution Width 12.3 % (12.1-15.1); White Blood Count 3.7 10^3/uL (4.0-10.0)
[2023-05-12 08:49] VITALS: BP 103/55; PULSE 63; RESP 18; TEMP 36; O2SAT 97
[2023-05-12 08:57] LABS: Alanine Aminotransferase 28 U/L (0-33); Albumin Level 3.9 g/dL (3.5-5.2); Alkaline Phosphatase 88 U/L (35-105); Aspartate Amino Transferase 29 U/L (0-32); Total Bilirubin 0.3 mg/dL (0.15-1.2); Total Protein 5.9 g/dL (6.6-8.7)
[2023-05-12] MEDS: sodium chloride 0.9% 250 ML 75 ML IV (09:03)
[2023-05-12] MEDS: diphenhydrAMINE 50 mg/mL SDV 1mL 25 MG IVP (09:06)
[2023-05-12] MEDS: methylPREDNISolone sod succ 40 mg SDV IVP (09:11)
[2023-05-12] MEDS: TOCILIZUMAB IV (09:36)
[2023-05-12] MEDS: SODIUM CHLORIDE 0.9% IV (09:36)
[2023-05-12 10:50] VITALS: BP 136/63; PULSE 69; RESP 17; TEMP 35.6; O2SAT 99
== END 2023-05-22 23:59 | disposition home or self-care (01) ==
PROVIDERS: PCP Family Medicine; Visit Provider Internal Medicine Rheumatology
DX: M05.9 Rheumatoid arthritis with rheumatoid factor, unspecified (principal)
CPT/HCPCS: 80076; 85025; 86140; 96374; 96375; 96413; J1200; J1642; J2920; J3262; J7050

== ENCOUNTER 2023-06-09 07:46 | Oncology outpatient (recurring) (ONCR) | payer MEDICARE, OTHER, SELFPAY ==
[2023-06-09 08:03] VITALS: BP 95/61; PULSE 75; RESP 18; TEMP 35.8; O2SAT 99
[2023-06-09 08:20] LABS: Eosinophils # 0.3 10^3/uL (0.0-0.8); Eosinophils % 8.4 %; Hematocrit 33.2 % (36-47); Lymphocytes # 0.5 10^3/uL (0.8-4.8); Lymphocytes % 15.2 %; Mean Corpuscular HGB Conc 32.5 g/dL (30-55); Mean Corpuscular Hemoglobin 30.6 pg (27-33); Mean Corpuscular Volume 94.1 fl (85-98); Mean Platelet Volume 10.1 fL (7.4-10.4); Monocytes # 0.4 10^3/uL (0.2-0.9); Monocytes % 14.2 %; Neutrophils % 61.2 %; Nucleated Red Blood Cells % 0 %; Platelet Count 180 10^3/cmm (157-399); Red Blood Count 3.53 10^6/uL (3.85-5.65); Red Cell Distribution Width 12.2 % (12.1-15.1)
[2023-06-09] MEDS: sodium chloride 0.9% 250 ML 100 ML IV (08:23)
[2023-06-09] MEDS: diphenhydrAMINE 50 mg/mL SDV 1mL 25 MG IVP (08:23)
[2023-06-09] MEDS: methylPREDNISolone sod succ 40 mg SDV IV (08:24)
[2023-06-09 08:43] LABS: Alanine Aminotransferase 17 U/L (0-33); Alkaline Phosphatase 69 U/L (35-105); Aspartate Amino Transferase 34 U/L (0-32); Globulin 2.4 g/dL (1.3-4.6); Total Bilirubin 0.2 mg/dL (0.15-1.2); Total Protein 6.4 g/dL (6.6-8.7)
[2023-06-09] MEDS: SODIUM CHLORIDE 0.9% IV (08:46)
[2023-06-09] MEDS: TOCILIZUMAB IV (08:46)
[2023-06-09 09:55] VITALS: BP 112/64; PULSE 66; RESP 17; TEMP 35.7; O2SAT 99
== END 2023-06-21 23:59 | disposition home or self-care (01) ==
LOC: ONCMED 07:46
PROVIDERS: PCP Family Medicine; Visit Provider Internal Medicine Rheumatology
DX: M05.9 Rheumatoid arthritis with rheumatoid factor, unspecified (principal)
CPT/HCPCS: 80076; 82565; 85025; 86140; 96374; 96375; 96413; J1200; J1642; J2920; J3262; J7050

== ENCOUNTER 2023-07-07 07:43 | Oncology outpatient (recurring) (ONCR) | payer MEDICARE, OTHER, SELFPAY ==
[2023-07-07 08:14] VITALS: BP 97/59; PULSE 76; RESP 17; TEMP 36.3; O2SAT 97
[2023-07-07] MEDS: sodium chloride 0.9% 250 ML 75 ML IV (08:30)
[2023-07-07] MEDS: diphenhydrAMINE 50 mg/mL SDV 1mL 25 MG IVP (08:30)
[2023-07-07] MEDS: methylPREDNISolone sod succ 40 mg SDV IV (08:35)
[2023-07-07] MEDS: TOCILIZUMAB IV (09:00)
[2023-07-07] MEDS: SODIUM CHLORIDE 0.9% IV (09:00)
[2023-07-07 10:30] VITALS: BP 94/58; PULSE 69; RESP 18; TEMP 36.2; O2SAT 96
== END 2023-07-22 23:59 | disposition home or self-care (01) ==
LOC: ONCMED 07:43
PROVIDERS: PCP Family Medicine; Visit Provider Internal Medicine Rheumatology
DX: M05.9 Rheumatoid arthritis with rheumatoid factor, unspecified (principal)
CPT/HCPCS: 96367; 96375; 96413; J1200; J1642; J2920; J3262; J7050

== ENCOUNTER 2023-09-01 07:45 | Oncology outpatient (recurring) (ONCR) | payer MEDICARE, OTHER, SELFPAY ==
[2023-09-01 07:57] VITALS: BP 98/61; PULSE 77; RESP 18; TEMP 36.2; O2SAT 94
[2023-09-01 08:14] LABS: Basophils % 0.5 %; Eosinophils # 0.2 10^3/uL (0.0-0.8); Eosinophils % 2.7 %; Hematocrit 34.4 % (36-47); Lymphocytes # 0.5 10^3/uL (0.8-4.8); Lymphocytes % 7.7 %; Mean Corpuscular HGB Conc 31.7 g/dL (30-55); Mean Corpuscular Hemoglobin 29.8 pg (27-33); Mean Platelet Volume 10.1 fL (7.4-10.4); Monocytes # 0.6 10^3/uL (0.2-0.9); Monocytes % 9.3 %; Neutrophils # 5.04 10^3/uL (1.8-7.7); Neutrophils % 79.5 %; Nucleated Red Blood Cells % 0 %; Platelet Count 210 10^3/cmm (157-399); Red Blood Count 3.66 10^6/uL (3.85-5.65); Red Cell Distribution Width 11.7 % (12.1-15.1); White Blood Count 6.34 10^3/uL (3.29-11.43)
[2023-09-01] MEDS: diphenhydrAMINE 50 mg/mL SDV 1mL 25 MG IVP (08:15)
[2023-09-01] MEDS: sodium chloride 0.9% 250 ML 75 ML IV (08:15)
[2023-09-01] MEDS: methylPREDNISolone sod succ 40 mg/mL INJ IVP (08:17)
[2023-09-01] MEDS: SODIUM CHLORIDE 0.9% IV (08:33)
[2023-09-01] MEDS: TOCILIZUMAB IV (08:33)
[2023-09-01 08:37] LABS: Alanine Aminotransferase 16 U/L (0-33); Alkaline Phosphatase 72 U/L (35-105); Aspartate Amino Transferase 19 U/L (0-32); Globulin 2.1 g/dL (1.3-4.6); Total Bilirubin 0.2 mg/dL (0.15-1.2); Total Protein 6.1 g/dL (6.6-8.7)
[2023-09-01 09:38] VITALS: BP 112/75; PULSE 70; RESP 16; TEMP 36.3; O2SAT 100
== END 2023-09-21 23:59 | disposition home or self-care (01) ==
PROVIDERS: PCP Family Medicine; Visit Provider Internal Medicine Rheumatology
DX: M05.9 Rheumatoid arthritis with rheumatoid factor, unspecified (principal)
CPT/HCPCS: 80076; 82565; 85025; 86140; 96375; 96413; J1200; J1642; J2920; J3262; J7050

== ENCOUNTER 2023-09-29 07:59 | Oncology outpatient (recurring) (ONCR) | payer MEDICARE, OTHER, SELFPAY ==
[2023-09-29 08:52] VITALS: BP 120/67; PULSE 69; RESP 18; TEMP 35.8; O2SAT 99
[2023-09-29] MEDS: methylPREDNISolone sod succ 40 mg/mL INJ IV (09:14)
[2023-09-29] MEDS: sodium chloride 0.9% 250 ML 75 ML IV (09:14)
[2023-09-29] MEDS: diphenhydrAMINE 50 mg/mL SDV 1mL 25 MG IVP (09:16)
[2023-09-29] MEDS: TOCILIZUMAB IV (09:24)
[2023-09-29] MEDS: SODIUM CHLORIDE 0.9% IV (09:24)
[2023-09-29 10:31] VITALS: BP 115/69; PULSE 76; RESP 16; TEMP 36.4; O2SAT 97
== END 2023-10-22 23:59 | disposition home or self-care (01) ==
PROVIDERS: PCP Family Medicine; Visit Provider Internal Medicine Rheumatology
DX: M05.9 Rheumatoid arthritis with rheumatoid factor, unspecified (principal)
CPT/HCPCS: 96375; 96413; J1200; J1642; J2920; J3262; J7050

== ENCOUNTER 2023-10-27 07:44 | Oncology outpatient (recurring) (ONCR) | payer MEDICARE, OTHER, SELFPAY ==
[2023-10-27 07:59] VITALS: BP 98/61; PULSE 73; TEMP 36.3; O2SAT 100
[2023-10-27 08:17] LABS: Basophils % 0.8 %; Eosinophils # 0.1 10^3/uL (0.0-0.8); Eosinophils % 3.8 %; Hematocrit 34.7 % (36-47); Lymphocytes # 0.5 10^3/uL (0.8-4.8); Lymphocytes % 14.4 %; Mean Corpuscular HGB Conc 32.6 g/dL (30-55); Mean Corpuscular Hemoglobin 29.9 pg (27-33); Mean Corpuscular Volume 91.8 fl (85-98); Monocytes # 0.3 10^3/uL (0.2-0.9); Monocytes % 8.2 %; Neutrophils # 2.66 10^3/uL (1.8-7.7); Neutrophils % 72.5 %; Nucleated Red Blood Cells % 0 %; Platelet Count 169 10^3/cmm (157-399); Red Blood Count 3.78 10^6/uL (3.85-5.65); Red Cell Distribution Width 11.9 % (12.1-15.1); White Blood Count 3.67 10^3/uL (3.29-11.43)
[2023-10-27 08:37] LABS: Alanine Aminotransferase 14 U/L (0-33); Alkaline Phosphatase 68 U/L (35-105); Aspartate Amino Transferase 22 U/L (0-32); Creatinine Clr Calc Pharmacy 40.0191; Globulin 2.4 g/dL (1.3-4.6); Total Bilirubin 0.2 mg/dL (0.15-1.2); Total Protein 6.4 g/dL (6.6-8.7)
[2023-10-27] MEDS: sodium chloride 0.9% 250 ML 75 ML IV (08:44)
[2023-10-27] MEDS: acetaminophen 325 mg Tablet 650 MG PO (08:45)
[2023-10-27] MEDS: diphenhydrAMINE 50 mg/mL SDV 1mL 25 MG IVP (08:46)
[2023-10-27] MEDS: methylPREDNISolone sod succ 40 mg/mL INJ IVP (08:49)
[2023-10-27] MEDS: TOCILIZUMAB IV (09:14)
[2023-10-27] MEDS: SODIUM CHLORIDE 0.9% IV (09:14)
[2023-10-27 10:28] VITALS: BP 106/63; PULSE 73; RESP 17; TEMP 36.4
== END 2023-11-20 23:59 | disposition home or self-care (01) ==
PROVIDERS: PCP Family Medicine; Visit Provider Internal Medicine Rheumatology
DX: M05.9 Rheumatoid arthritis with rheumatoid factor, unspecified (principal)
CPT/HCPCS: 80076; 82565; 85025; 86140; 96375; 96413; J1200; J1642; J2920; J3262; J7050

== ENCOUNTER 2023-11-24 07:52 | Oncology outpatient (recurring) (ONCR) | payer MEDICARE, OTHER, SELFPAY ==
[2023-11-24 08:02] VITALS: BP 104/64; PULSE 74; RESP 18; TEMP 36.1
[2023-11-24 08:08] VITALS: O2SAT 99
[2023-11-24] MEDS: sodium chloride 0.9% 250 ML 75 ML IV (08:15)
[2023-11-24] MEDS: methylPREDNISolone sod succ 40 mg/mL INJ IVP (08:16)
[2023-11-24] MEDS: diphenhydrAMINE 50 mg/mL SDV 1mL 25 MG IVP (08:18)
[2023-11-24] MEDS: TOCILIZUMAB IV (08:20)
[2023-11-24] MEDS: SODIUM CHLORIDE 0.9% IV (08:20)
[2023-11-24 09:23] VITALS: BP 106/64; PULSE 67; O2SAT 97
== END 2023-12-21 23:59 | disposition home or self-care (01) ==
PROVIDERS: PCP Family Medicine; Visit Provider Internal Medicine Rheumatology
DX: M05.9 Rheumatoid arthritis with rheumatoid factor, unspecified (principal)
CPT/HCPCS: 96375; 96413; J1200; J1642; J2920; J3262; J7050

== ENCOUNTER 2024-01-19 08:30 | Oncology outpatient (recurring) (ONCR) | payer MEDICARE, OTHER, SELFPAY ==
[2023-12-22 08:41] VITALS: BP 93/61; PULSE 65; RESP 17; O2SAT 96
[2023-12-22 08:44] LABS: Basophils % 1.1 %; Eosinophils # 0.2 10^3/uL (0.0-0.8); Eosinophils % 5.4 %; Hematocrit 34.1 % (36-47); Lymphocytes # 0.7 10^3/uL (0.8-4.8); Lymphocytes % 19.7 %; Mean Corpuscular HGB Conc 32.6 g/dL (30-55); Mean Corpuscular Hemoglobin 30.2 pg (27-33); Mean Corpuscular Volume 92.7 fl (85-98); Mean Platelet Volume 10.3 fL (7.4-10.4); Monocytes # 0.5 10^3/uL (0.2-0.9); Monocytes % 13.1 %; Neutrophils # 2.12 10^3/uL (1.8-7.7); Neutrophils % 60.4 %; Nucleated Red Blood Cells % 0 %; Platelet Count 158 10^3/cmm (157-399); Red Blood Count 3.68 10^6/uL (3.85-5.65); Red Cell Distribution Width 12.1 % (12.1-15.1); White Blood Count 3.51 10^3/uL (3.29-11.43)
[2023-12-22 09:02] LABS: Alanine Aminotransferase 11 U/L (0-33); Albumin Level 4.2 g/dL (3.5-5.2); Alkaline Phosphatase 65 U/L (35-105); Aspartate Amino Transferase 23 U/L (0-32); Globulin 2.3 g/dL (1.3-4.6); Total Bilirubin 0.2 mg/dL (0.15-1.2); Total Protein 6.5 g/dL (6.6-8.7)
[2023-12-22] MEDS: sodium chloride 0.9% 250 ML 75 ML IV (09:03)
[2023-12-22] MEDS: diphenhydrAMINE 50 mg/mL SDV 1mL 25 MG IVP (09:06)
[2023-12-22] MEDS: methylPREDNISolone sod succ 40 mg/mL INJ IVP (09:09)
[2023-12-22] MEDS: SODIUM CHLORIDE 0.9% IV (09:26)
[2023-12-22] MEDS: TOCILIZUMAB IV (09:26)
[2023-12-22 10:32] VITALS: BP 110/64; PULSE 53; RESP 18; TEMP 36; O2SAT 96
[2024-01-19 08:40] VITALS: BP 101/55; PULSE 72; RESP 18; TEMP 36.4; O2SAT 97
[2024-01-19] MEDS: sodium chloride 0.9% 250 ML 75 ML IV (08:46)
[2024-01-19] MEDS: diphenhydrAMINE 50 mg/mL SDV 1mL 25 MG IVP (08:46)
[2024-01-19] MEDS: methylPREDNISolone sod succ 40 mg/mL INJ IVP (08:47)
[2024-01-19] MEDS: SODIUM CHLORIDE 0.9% IV (09:13)
[2024-01-19] MEDS: TOCILIZUMAB IV (09:13)
[2024-01-19 10:15] VITALS: BP 97/62; PULSE 69; RESP 18; TEMP 36.7; O2SAT 97
== END 2024-01-20 23:59 | disposition home or self-care (01) ==
PROVIDERS: PCP Family Medicine; Visit Provider Internal Medicine Rheumatology
DX: M05.9 Rheumatoid arthritis with rheumatoid factor, unspecified (principal); Z53.9 Procedure and treatment not carried out, unspecified reason
CPT/HCPCS: 80076; 82565; 85025; 86140; 96365; 96375; 96413; J1200; J1642; J2919; J3262; J7050

== ENCOUNTER 2024-02-17 08:02 | Oncology outpatient (recurring) (ONCR) | payer MEDICARE, OTHER, SELFPAY ==
[2024-02-17 08:34] VITALS: BP 100/59; PULSE 71; RESP 18; TEMP 36.6; O2SAT 99
[2024-02-17] MEDS: sodium chloride 0.9% 250 ML 75 ML IV (08:47)
[2024-02-17] MEDS: diphenhydrAMINE 50 mg/mL SDV 1mL 25 MG IVP (08:47)
[2024-02-17] MEDS: methylPREDNISolone sod succ 40 mg/mL INJ IVP (08:50)
[2024-02-17] MEDS: TOCILIZUMAB IV (09:06)
[2024-02-17] MEDS: SODIUM CHLORIDE 0.9% IV (09:06)
[2024-02-17 10:15] VITALS: BP 120/61; PULSE 89; RESP 16; TEMP 36.6; O2SAT 100
== END 2024-02-20 23:59 | disposition home or self-care (01) ==
PROVIDERS: PCP Family Medicine; Visit Provider Internal Medicine Rheumatology
DX: M05.9 Rheumatoid arthritis with rheumatoid factor, unspecified (principal); Z79.620 Long term (current) use of immunosuppressive biologic; Z79.899 Other long term (current) drug therapy
CPT/HCPCS: 96375; 96413; J1200; J2919; J3262; J7050

== ENCOUNTER 2024-03-16 08:19 | Oncology outpatient (recurring) (ONCR) | payer MEDICARE, OTHER, SELFPAY ==
[2024-03-16 08:46] VITALS: BP 95/60; PULSE 68; RESP 16; TEMP 36.4; O2SAT 98
[2024-03-16 08:49] LABS: Basophils % 1.2 %; Eosinophils # 0.3 10^3/uL (0.0-0.8); Eosinophils % 7.8 %; Hematocrit 33.9 % (36-47); Lymphocytes # 0.6 10^3/uL (0.8-4.8); Lymphocytes % 17.1 %; Mean Corpuscular HGB Conc 32.7 g/dL (30-55); Mean Corpuscular Hemoglobin 30.5 pg (27-33); Mean Corpuscular Volume 93.1 fl (85-98); Mean Platelet Volume 10.4 fL (7.4-10.4); Monocytes # 0.5 10^3/uL (0.2-0.9); Monocytes % 13.3 %; Neutrophils # 2.09 10^3/uL (1.8-7.7); Neutrophils % 60.3 %; Nucleated Red Blood Cells % 0 %; Platelet Count 165 10^3/cmm (157-399); Red Blood Count 3.64 10^6/uL (3.85-5.65); Red Cell Distribution Width 11.9 % (12.1-15.1); White Blood Count 3.46 10^3/uL (3.29-11.43)
[2024-03-16] MEDS: sodium chloride 0.9% 250 ML 75 ML IV (09:04)
[2024-03-16] MEDS: diphenhydrAMINE 50 mg/mL SDV 1mL 25 MG IVP (09:08)
[2024-03-16 09:09] LABS: Albumin Level 4.1 g/dL (3.5-5.2); Alkaline Phosphatase 62 U/L (35-105); Aspartate Amino Transferase 23 U/L (0-32); Globulin 2.2 g/dL (1.3-4.6); Total Bilirubin 0.3 mg/dL (0.15-1.2); Total Protein 6.3 g/dL (6.6-8.7)
[2024-03-16] MEDS: methylPREDNISolone sod succ 40 mg/mL INJ IVP (09:12)
[2024-03-16 09:20] LABS: Alanine Aminotransferase 17 U/L (0-33)
[2024-03-16] MEDS: TOCILIZUMAB IV (09:35)
[2024-03-16] MEDS: SODIUM CHLORIDE 0.9% IV (09:35)
[2024-03-16 10:42] VITALS: BP 105/63; PULSE 70; RESP 16; TEMP 36.2; O2SAT 97
== END 2024-03-21 23:59 | disposition home or self-care (01) ==
PROVIDERS: PCP Family Medicine; Visit Provider Internal Medicine Rheumatology
DX: M05.9 Rheumatoid arthritis with rheumatoid factor, unspecified (principal); Z79.620 Long term (current) use of immunosuppressive biologic
CPT/HCPCS: 80076; 82565; 85025; 86140; 96375; 96413; J1200; J2919; J3262; J7050

== ENCOUNTER 2024-04-13 08:51 | Oncology outpatient (recurring) (ONCR) | payer MEDICARE, OTHER, SELFPAY ==
[2024-04-13 09:46] VITALS: BP 107/57; PULSE 69; RESP 16; TEMP 36.4; O2SAT 100
[2024-04-13] MEDS: sodium chloride 0.9% 250 ML 75 ML IV (10:05)
[2024-04-13] MEDS: methylPREDNISolone sod succ 40 mg/mL INJ IVP (10:07)
[2024-04-13] MEDS: diphenhydrAMINE 50 mg/mL SDV 1mL 25 MG IVP (10:08)
[2024-04-13] MEDS: TOCILIZUMAB IV (10:51)
[2024-04-13] MEDS: SODIUM CHLORIDE 0.9% IV (10:51)
[2024-04-13 11:18] VITALS: BP 119/70; PULSE 72; RESP 17; TEMP 36.5; O2SAT 98
[2024-04-13 11:51] VITALS: BP 120/64; PULSE 71; TEMP 36.1
== END 2024-04-21 23:59 | disposition home or self-care (01) ==
LOC: ONCMED 08:51
PROVIDERS: PCP Family Medicine; Visit Provider Internal Medicine Rheumatology
DX: M05.9 Rheumatoid arthritis with rheumatoid factor, unspecified (principal); Z79.899 Other long term (current) drug therapy
CPT/HCPCS: 96375; 96413; J1200; J2919; J3262; J7050

== ENCOUNTER 2024-05-12 08:24 | Oncology outpatient (recurring) (ONCR) | payer MEDICARE, OTHER, SELFPAY ==
[2024-05-12 08:36] VITALS: BP 128/76; PULSE 92; RESP 16; TEMP 36.3; O2SAT 97
[2024-05-12] MEDS: sodium chloride 0.9% 250 ML 75 ML IV (08:58)
[2024-05-12] MEDS: methylPREDNISolone sod succ 40 mg/mL INJ IVP (09:00)
[2024-05-12] MEDS: diphenhydrAMINE 50 mg/mL SDV 1mL 25 MG IVP (09:02)
[2024-05-12 09:06] LABS: Basophils % 0.9 %; Eosinophils # 0.3 10^3/uL (0.0-0.8); Eosinophils % 8.6 %; Hematocrit 34.9 % (36-47); Lymphocytes # 0.5 10^3/uL (0.8-4.8); Lymphocytes % 14.9 %; Mean Corpuscular HGB Conc 32.1 g/dL (30-55); Mean Corpuscular Hemoglobin 30.1 pg (27-33); Mean Corpuscular Volume 93.8 fl (85-98); Mean Platelet Volume 10.3 fL (7.4-10.4); Monocytes # 0.4 10^3/uL (0.2-0.9); Monocytes % 11.9 %; Neutrophils # 2.14 10^3/uL (1.8-7.7); Neutrophils % 63.7 %; Nucleated Red Blood Cells % 0 %; Platelet Count 180 10^3/cmm (157-399); Red Blood Count 3.72 10^6/uL (3.85-5.65); Red Cell Distribution Width 12.1 % (12.1-15.1); White Blood Count 3.36 10^3/uL (3.29-11.43)
[2024-05-12 09:29] LABS: Alanine Aminotransferase 22 U/L (0-33); Albumin Level 4.2 g/dL (3.5-5.2); Alkaline Phosphatase 64 U/L (35-105); Aspartate Amino Transferase 25 U/L (0-32); Globulin 2.2 g/dL (1.3-4.6); Total Bilirubin 0.3 mg/dL (0.15-1.2); Total Protein 6.4 g/dL (6.6-8.7)
[2024-05-12 09:31] LABS: Creatinine Clr Calc Pharmacy 42.7485
[2024-05-12] MEDS: SODIUM CHLORIDE 0.9% IV (09:35)
[2024-05-12] MEDS: TOCILIZUMAB IV (09:35)
[2024-05-12 10:42] VITALS: BP 118/71; PULSE 73; RESP 16; TEMP 36.3; O2SAT 95
== END 2024-05-22 23:55 | disposition home or self-care (01) ==
PROVIDERS: PCP Family Medicine; Visit Provider Internal Medicine Rheumatology
DX: M05.9 Rheumatoid arthritis with rheumatoid factor, unspecified (principal); Z79.899 Other long term (current) drug therapy
CPT/HCPCS: 80076; 82565; 85025; 86140; 96375; 96413; J1200; J2919; J3262; J7050

== ENCOUNTER 2024-06-09 07:45 | Oncology outpatient (recurring) (ONCR) | payer MEDICARE, OTHER, SELFPAY ==
[2024-06-09 08:22] VITALS: BP 100/62; PULSE 72; RESP 16; TEMP 36.3; O2SAT 100
[2024-06-09] MEDS: sodium chloride 0.9% 250 ML 75 ML IV (08:24)
[2024-06-09] MEDS: diphenhydrAMINE 50 mg/mL SDV 1mL 25 MG IVP (08:27)
[2024-06-09] MEDS: methylPREDNISolone sod succ 40 mg/mL INJ IVP (08:34)
[2024-06-09] MEDS: TOCILIZUMAB IV (09:12)
[2024-06-09] MEDS: SODIUM CHLORIDE 0.9% IV (09:12)
[2024-06-09 10:28] VITALS: BP 115/68; PULSE 69; RESP 16; TEMP 36.7; O2SAT 98
== END 2024-06-21 23:59 | disposition home or self-care (01) ==
PROVIDERS: PCP Family Medicine; Visit Provider Internal Medicine Rheumatology
DX: M05.9 Rheumatoid arthritis with rheumatoid factor, unspecified (principal); Z79.899 Other long term (current) drug therapy
CPT/HCPCS: 96375; 96413; J1200; J2919; J3262; J7050

== ENCOUNTER 2024-07-08 07:43 | Oncology outpatient (recurring) (ONCR) | payer MEDICARE, OTHER, SELFPAY ==
[2024-07-08 08:23] VITALS: BP 103/64; PULSE 69; RESP 16; TEMP 36.1; O2SAT 97
[2024-07-08 08:26] LABS: Basophils # 0.1 10^3/uL (0.0-0.1); Basophils % 1.2 %; Eosinophils # 0.2 10^3/uL (0.0-0.8); Eosinophils % 4.3 %; Lymphocytes # 0.5 10^3/uL (0.8-4.8); Lymphocytes % 11.8 %; Mean Corpuscular HGB Conc 32.6 g/dL (30-55); Mean Corpuscular Hemoglobin 30.2 pg (27-33); Mean Corpuscular Volume 92.8 fl (85-98); Mean Platelet Volume 10.3 fL (7.4-10.4); Monocytes # 0.4 10^3/uL (0.2-0.9); Monocytes % 9.8 %; Neutrophils # 3.03 10^3/uL (1.8-7.7); Neutrophils % 72.7 %; Nucleated Red Blood Cells % 0 %; Platelet Count 199 10^3/cmm (157-399); Red Blood Count 3.77 10^6/uL (3.85-5.65); Red Cell Distribution Width 11.9 % (12.1-15.1); White Blood Count 4.17 10^3/uL (3.29-11.43)
[2024-07-08] MEDS: sodium chloride 0.9% 250 ML 75 ML IV (08:37)
[2024-07-08] MEDS: methylPREDNISolone sod succ 40 mg/mL INJ IVP (08:38)
[2024-07-08 08:41] LABS: Alanine Aminotransferase 12 U/L (0-33); Albumin Level 4.3 g/dL (3.5-5.2); Alkaline Phosphatase 68 U/L (35-105); Aspartate Amino Transferase 23 U/L (0-32); Globulin 2.4 g/dL (1.3-4.6); Total Bilirubin 0.2 mg/dL (0.15-1.2); Total Protein 6.7 g/dL (6.6-8.7)
[2024-07-08] MEDS: diphenhydrAMINE 50 mg/mL SDV 1mL 25 MG IVP (08:42)
[2024-07-08] MEDS: SODIUM CHLORIDE 0.9% IV (09:13)
[2024-07-08] MEDS: TOCILIZUMAB IV (09:13)
[2024-07-08 10:28] VITALS: BP 108/65; PULSE 67; RESP 16; TEMP 36.4; O2SAT 99
== END 2024-07-22 23:59 | disposition home or self-care (01) ==
PROVIDERS: Internal Medicine Rheumatology; PCP Family Medicine; Visit Provider Family Medicine
DX: M05.9 Rheumatoid arthritis with rheumatoid factor, unspecified (principal); Z79.899 Other long term (current) drug therapy
CPT/HCPCS: 80076; 82565; 85025; 86140; 96375; 96413; J1200; J2919; J3262; J7050

== ENCOUNTER → 2024-07-12 08:06 | Outpatient (BNVA) | payer MEDICARE, OTHER, SELFPAY | PROVIDERS: PCP Family Medicine; Visit Provider Podiatrist Foot & Ankle Surgery | DX: Q66.71 Congenital pes cavus, right foot; Q66.72 Congenital pes cavus, left foot; M05.79 Rheumatoid arthritis with rheumatoid factor of multiple sites without organ or systems involvement; Z89.422 Acquired absence of other left toe(s); G62.9 Polyneuropathy, unspecified | CPT/HCPCS: 73630; 99203 ==

== ENCOUNTER 2024-09-07 12:44 | Oncology outpatient (recurring) (ONCR) | payer MEDICARE, OTHER, SELFPAY ==
[2024-09-07 14:01] LABS: Basophils % 0.9 %; Eosinophils # 0.2 10^3/uL (0.0-0.8); Eosinophils % 3.5 %; Hematocrit 33.4 % (36-47); Lymphocytes # 0.7 10^3/uL (0.8-4.8); Lymphocytes % 15.4 %; Mean Corpuscular HGB Conc 32.3 g/dL (30-55); Mean Corpuscular Volume 92.8 fl (85-98); Monocytes # 0.4 10^3/uL (0.2-0.9); Monocytes % 9.3 %; Neutrophils # 3.26 10^3/uL (1.8-7.7); Neutrophils % 70.7 %; Nucleated Red Blood Cells % 0 %; Platelet Count 198 10^3/cmm (157-399); Red Cell Distribution Width 11.6 % (12.1-15.1); White Blood Count 4.61 10^3/uL (3.29-11.43)
[2024-09-07] MEDS: sodium chloride 0.9% 250 ML 75 ML IV (14:16)
[2024-09-07] MEDS: methylPREDNISolone sod succ 40 mg/mL INJ IVP (14:18)
[2024-09-07] MEDS: diphenhydrAMINE 50 mg/mL SDV 1mL 25 MG IVP (14:18)
[2024-09-07 14:22] LABS: Alanine Aminotransferase 14 U/L (0-33); Albumin Level 3.8 g/dL (3.5-5.2); Alkaline Phosphatase 75 U/L (35-105); Aspartate Amino Transferase 19 U/L (0-32); Globulin 2.5 g/dL (1.3-4.6); Total Bilirubin 0.3 mg/dL (0.15-1.2); Total Protein 6.3 g/dL (6.6-8.7)
[2024-09-07] MEDS: SODIUM CHLORIDE 0.9% IV (14:41)
[2024-09-07] MEDS: TOCILIZUMAB IV (14:41)
[2024-09-07 16:03] VITALS: BP 124/67; PULSE 72; TEMP 36.2
== END 2024-09-21 23:59 | disposition home or self-care (01) ==
PROVIDERS: Internal Medicine Rheumatology; PCP Family Medicine; Visit Provider Family Medicine
DX: M05.9 Rheumatoid arthritis with rheumatoid factor, unspecified (principal); Z79.899 Other long term (current) drug therapy
CPT/HCPCS: 80076; 82565; 85025; 86140; 96413; J1200; J2919; J3262; J7050

== ENCOUNTER 2024-10-05 07:39 | Oncology outpatient (recurring) (ONCR) | payer MEDICARE, OTHER, SELFPAY ==
[2024-10-05 08:01] VITALS: BP 107/68; PULSE 88; RESP 16; TEMP 36.3
[2024-10-05] MEDS: diphenhydrAMINE 50 mg/mL SDV 1mL 25 MG IVP (08:22)
[2024-10-05] MEDS: sodium chloride 0.9% 250 ML 75 ML IV (08:22)
[2024-10-05] MEDS: methylPREDNISolone sod succ 40 mg/mL INJ IVP (08:32)
[2024-10-05] MEDS: SODIUM CHLORIDE 0.9% IV (08:52)
[2024-10-05] MEDS: TOCILIZUMAB IV (08:52)
[2024-10-05 10:10] VITALS: BP 124/78; PULSE 78; RESP 18; TEMP 36.6; O2SAT 97
== END 2024-10-22 23:59 | disposition home or self-care (01) ==
PROVIDERS: PCP Family Medicine; Visit Provider Family Medicine
DX: M05.9 Rheumatoid arthritis with rheumatoid factor, unspecified (principal); Z79.620 Long term (current) use of immunosuppressive biologic
CPT/HCPCS: 96365; 96366; 96375; 96413; J1200; J2919; J3262; J7050

== ENCOUNTER 2024-11-02 07:47 | Oncology outpatient (recurring) (ONCR) | payer MEDICARE, OTHER, SELFPAY ==
[2024-11-02 08:14] VITALS: BP 99/65; PULSE 63; RESP 16; TEMP 36.3; O2SAT 100
[2024-11-02 08:25] LABS: Basophils # 0.1 10^3/uL (0.0-0.1); Basophils % 1.5 %; Eosinophils # 0.2 10^3/uL (0.0-0.8); Eosinophils % 5.2 %; Hematocrit 35.8 % (36-47); Lymphocytes # 0.6 10^3/uL (0.8-4.8); Lymphocytes % 17.5 %; Mean Corpuscular HGB Conc 32.1 g/dL (30-55); Mean Corpuscular Hemoglobin 29.6 pg (27-33); Monocytes # 0.4 10^3/uL (0.2-0.9); Monocytes % 12.2 %; Neutrophils # 2.17 10^3/uL (1.8-7.7); Neutrophils % 63.3 %; Nucleated Red Blood Cells % 0 %; Platelet Count 186 10^3/cmm (157-399); Red Blood Count 3.89 10^6/uL (3.85-5.65); White Blood Count 3.43 10^3/uL (3.29-11.43)
[2024-11-02] MEDS: sodium chloride 0.9% 250 ML 75 ML IV (08:28)
[2024-11-02] MEDS: methylPREDNISolone sod succ 40 mg/mL INJ IVP (08:30)
[2024-11-02] MEDS: diphenhydrAMINE 50 mg/mL SDV 1mL 25 MG IVP (08:33)
[2024-11-02 08:45] LABS: Erythrocyte Sedimentation Rate < 1 mm/hr (0-15)
[2024-11-02 08:48] LABS: Alanine Aminotransferase 14 U/L (0-33); Albumin Level 4.2 g/dL (3.5-5.2); Alkaline Phosphatase 78 U/L (35-105); Aspartate Amino Transferase 23 U/L (0-32); Creatinine Clr Calc Pharmacy 42.3534; Globulin 2.3 g/dL (1.3-4.6); Total Bilirubin 0.2 mg/dL (0.15-1.2); Total Protein 6.5 g/dL (6.6-8.7)
[2024-11-02] MEDS: TOCILIZUMAB IV (09:09)
[2024-11-02] MEDS: SODIUM CHLORIDE 0.9% IV (09:09)
[2024-11-02 10:23] VITALS: BP 110/64; PULSE 71; RESP 16; TEMP 36.7; O2SAT 98
== END 2024-11-19 23:59 | disposition home or self-care (01) ==
PROVIDERS: Internal Medicine Rheumatology; PCP Family Medicine; Visit Provider Family Medicine
DX: M05.9 Rheumatoid arthritis with rheumatoid factor, unspecified (principal); Z79.620 Long term (current) use of immunosuppressive biologic; Z79.899 Other long term (current) drug therapy
CPT/HCPCS: 80076; 82565; 85025; 85651; 86140; 96375; 96413; J1200; J2919; J3262; J7050

== ENCOUNTER 2024-11-03 09:44 | Outpatient (CLI) | payer MEDICARE, OTHER, SELFPAY | END 2024-11-03 09:45 | disposition home or self-care (01) | LOC: SPT 09:45 | PROVIDERS: PCP Family Medicine; Visit Provider Podiatrist Foot & Ankle Surgery | DX: Z46.89 Encounter for fitting and adjustment of other specified devices (principal); Z89.422 Acquired absence of other left toe(s); G62.9 Polyneuropathy, unspecified; Z86.711 Personal history of pulmonary embolism; M05.79 Rheumatoid arthritis with rheumatoid factor of multiple sites without organ or systems involvement | CPT/HCPCS: L3030 ==

== ENCOUNTER 2024-11-30 07:55 | Oncology outpatient (recurring) (ONCR) | payer MEDICARE, OTHER, SELFPAY ==
[2024-11-30 08:44] VITALS: BP 140/68; PULSE 67; RESP 16; TEMP 36.6; O2SAT 98
[2024-11-30] MEDS: sodium chloride 0.9% 250 ML 75 ML IV (08:46)
[2024-11-30] MEDS: methylPREDNISolone sod succ 40 mg/mL INJ IVP (08:49)
[2024-11-30] MEDS: diphenhydrAMINE 50 mg/mL SDV 1mL 25 MG IVP (08:54)
[2024-11-30 10:43] VITALS: BP 108/64; PULSE 73; RESP 18; TEMP 36.8; O2SAT 99
== END 2024-12-20 23:59 | disposition home or self-care (01) ==
PROVIDERS: PCP Family Medicine; Visit Provider Family Medicine
DX: M05.9 Rheumatoid arthritis with rheumatoid factor, unspecified (principal); Z79.620 Long term (current) use of immunosuppressive biologic; Z79.899 Other long term (current) drug therapy
CPT/HCPCS: 96413; 99213; J1200; J2919; J7050; Q5135

== ENCOUNTER 2024-12-28 08:05 | Oncology outpatient (recurring) (ONCR) | payer MEDICARE, OTHER, SELFPAY ==
[2024-12-28 08:59] LABS: Basophils # 0.1 10^3/uL (0.0-0.1); Basophils % 1.3 %; Eosinophils # 0.2 10^3/uL (0.0-0.8); Eosinophils % 6.3 %; Hematocrit 34.4 % (36-47); Lymphocytes # 0.7 10^3/uL (0.8-4.8); Lymphocytes % 18.1 %; Mean Corpuscular HGB Conc 32.6 g/dL (30-55); Mean Corpuscular Hemoglobin 29.9 pg (27-33); Mean Platelet Volume 9.9 fL (7.4-10.4); Monocytes # 0.5 10^3/uL (0.2-0.9); Monocytes % 11.8 %; Neutrophils # 2.38 10^3/uL (1.8-7.7); Neutrophils % 62.2 %; Nucleated Red Blood Cells % 0 %; Platelet Count 178 10^3/cmm (157-399); Red Blood Count 3.74 10^6/uL (3.85-5.65); Red Cell Distribution Width 11.9 % (12.1-15.1); White Blood Count 3.82 10^3/uL (3.29-11.43)
[2024-12-28 09:00] VITALS: BP 111/68; PULSE 71; RESP 16; TEMP 36; O2SAT 98
[2024-12-28 09:13] LABS: Alanine Aminotransferase 15 U/L (0-33); Albumin Level 4.1 g/dL (3.5-5.2); Alkaline Phosphatase 72 U/L (35-105); Aspartate Amino Transferase 22 U/L (0-32); Globulin 2.3 g/dL (1.3-4.6); Total Bilirubin 0.2 mg/dL (0.15-1.2); Total Protein 6.4 g/dL (6.6-8.7)
[2024-12-28 09:16] LABS: Erythrocyte Sedimentation Rate < 1 mm/hr (0-15)
[2024-12-28] MEDS: sodium chloride 0.9% 250 ML 75 ML IV (09:29)
[2024-12-28] MEDS: methylPREDNISolone sod succ 40 mg/mL INJ IVP (09:32)
[2024-12-28] MEDS: diphenhydrAMINE 50 mg/mL SDV 1mL 25 MG IVP (09:40)
[2024-12-28] MEDS: SODIUM CHLORIDE 0.9% IV (10:15)
[2024-12-28] MEDS: TOCILIZUMAB AAZG IV (10:15)
[2024-12-28 11:32] VITALS: BP 125/71; PULSE 70; RESP 16; TEMP 35.9; O2SAT 100
== END 2025-01-19 23:59 | disposition home or self-care (01) ==
LOC: ONCMED 08:06
PROVIDERS: Internal Medicine Rheumatology; PCP Family Medicine; Visit Provider Family Medicine
DX: M05.9 Rheumatoid arthritis with rheumatoid factor, unspecified (principal); Z79.899 Other long term (current) drug therapy
CPT/HCPCS: 80076; 82565; 85025; 85651; 86140; 96375; 96413; J1200; J2919; J7050; Q5135

== ENCOUNTER 2025-02-22 11:52 | Oncology outpatient (recurring) (ONCR) | payer MEDICARE, OTHER, SELFPAY ==
[2025-02-22 11:59] VITALS: BP 108/67; PULSE 77; RESP 16; TEMP 36.4; O2SAT 96
[2025-02-22 12:26] LABS: Basophils # 0.1 10^3/uL (0.0-0.1); Basophils % 1.3 %; Eosinophils # 0.2 10^3/uL (0.0-0.8); Eosinophils % 5.1 %; Hematocrit 33.9 % (36-47); Lymphocytes # 0.6 10^3/uL (0.8-4.8); Lymphocytes % 14.2 %; Mean Corpuscular HGB Conc 32.2 g/dL (30-55); Mean Corpuscular Volume 93.4 fl (85-98); Mean Platelet Volume 10.4 fL (7.4-10.4); Monocytes # 0.3 10^3/uL (0.2-0.9); Monocytes % 8.4 %; Neutrophils # 2.78 10^3/uL (1.8-7.7); Neutrophils % 70.7 %; Nucleated Red Blood Cells % 0 %; Platelet Count 185 10^3/cmm (157-399); Red Blood Count 3.63 10^6/uL (3.85-5.65); Red Cell Distribution Width 11.9 % (12.1-15.1); White Blood Count 3.93 10^3/uL (3.29-11.43)
[2025-02-22] MEDS: sodium chloride 0.9% 250 ML 75 ML IV (12:32)
[2025-02-22] MEDS: methylPREDNISolone sod succ 40 mg/mL INJ IVP (12:33)
[2025-02-22 12:37] LABS: Erythrocyte Sedimentation Rate < 1 mm/hr (0-15)
[2025-02-22] MEDS: diphenhydrAMINE 50 mg/mL SDV 1mL 25 MG IVP (12:38)
[2025-02-22 12:59] LABS: Alanine Aminotransferase 17 U/L (0-33); Albumin Level 3.9 g/dL (3.5-5.2); Alkaline Phosphatase 72 U/L (35-105); Aspartate Amino Transferase 22 U/L (0-32); Globulin 2.3 g/dL (1.3-4.6); Total Bilirubin 0.3 mg/dL (0.15-1.2); Total Protein 6.2 g/dL (6.6-8.7)
[2025-02-22] MEDS: SODIUM CHLORIDE 0.9% IV (13:17)
[2025-02-22] MEDS: TOCILIZUMAB AAZG IV (13:17)
[2025-02-22 14:24] VITALS: BP 126/69; PULSE 77; TEMP 36.8; O2SAT 95
== END 2025-03-21 23:59 | disposition home or self-care (01) ==
PROVIDERS: Internal Medicine Rheumatology; PCP Family Medicine; Visit Provider Family Medicine
DX: M05.79 Rheumatoid arthritis with rheumatoid factor of multiple sites without organ or systems involvement (principal); Z89.429 Acquired absence of other toe(s), unspecified side; Q66.71 Congenital pes cavus, right foot; Q66.72 Congenital pes cavus, left foot; Z89.422 Acquired absence of other left toe(s); G62.9 Polyneuropathy, unspecified; L60.3 Nail dystrophy; Z79.899 Other long term (current) drug therapy
CPT/HCPCS: 80076; 82565; 85025; 85651; 86140; 96375; 96413; 99213; J1200; J2919; J7050; Q5135

== ENCOUNTER 2025-04-19 08:00 | Oncology outpatient (recurring) (ONCR) | payer MEDICARE, OTHER, SELFPAY ==
[2025-03-22] MEDS: diphenhydrAMINE 50 mg/mL SDV 1mL 25 MG IVP (08:33)
[2025-03-22] MEDS: methylPREDNISolone sod succ 40 mg/mL INJ IVP (08:42)
[2025-03-22] MEDS: TOCILIZUMAB AAZG IV (09:28)
[2025-03-22] MEDS: SODIUM CHLORIDE 0.9% IV (09:28)
[2025-03-22 10:55] VITALS: BP 125/69; PULSE 69; RESP 18; TEMP 36.4; O2SAT 91
[2025-04-19 08:06] VITALS: BP 98/62; PULSE 73; TEMP 35.9; O2SAT 96
[2025-04-19] MEDS: diphenhydrAMINE 50 mg/mL SDV 1mL 25 MG IVP (08:37)
[2025-04-19] MEDS: methylPREDNISolone sod succ 40 mg/mL INJ IVP (08:43)
[2025-04-19] MEDS: SODIUM CHLORIDE 0.9% IV (09:41)
[2025-04-19] MEDS: TOCILIZUMAB AAZG IV (09:41)
[2025-04-19 10:51] VITALS: BP 111/76; PULSE 76; RESP 18; TEMP 36.6; O2SAT 99
== END 2025-04-21 23:59 | disposition home or self-care (01) ==
PROVIDERS: PCP Family Medicine; Visit Provider Family Medicine
DX: Z53.9 Procedure and treatment not carried out, unspecified reason; M05.9 Rheumatoid arthritis with rheumatoid factor, unspecified; Z79.899 Other long term (current) drug therapy
CPT/HCPCS: 96375; 96413; J1200; J2919; J7050; Q5135

== ENCOUNTER → 2025-05-16 07:56 | Outpatient (BNVA) | payer MEDICARE, OTHER, SELFPAY | PROVIDERS: PCP Family Medicine; Visit Provider Podiatrist Foot & Ankle Surgery | DX: L60.8 Other nail disorders (principal); M05.79 Rheumatoid arthritis with rheumatoid factor of multiple sites without organ or systems involvement; Z89.421 Acquired absence of other right toe(s); Q66.71 Congenital pes cavus, right foot; Q66.72 Congenital pes cavus, left foot; Z89.422 Acquired absence of other left toe(s); G62.9 Polyneuropathy, unspecified; L60.3 Nail dystrophy | CPT/HCPCS: 11721 ==

== ENCOUNTER 2025-05-17 07:54 | Oncology outpatient (recurring) (ONCR) | payer MEDICARE, OTHER, SELFPAY ==
[2025-05-17 08:26] LABS: Hematocrit 34.6 % (36-47); Hemoglobin 11.30 g/dL (11.27-16.99); Mean Corpuscular HGB Conc 32.7 g/dL (30-55); Mean Corpuscular Hemoglobin 30.1 pg (27-33); Mean Corpuscular Volume 92.0 fl (85-98); Nucleated Red Blood Cells % 0 %; Platelet Count 169 10^3/cmm (157-399); Red Blood Count 3.76 10^6/uL (3.85-5.65); White Blood Count 3.22 10^3/uL (3.29-11.43)
[2025-05-17] MEDS: methylPREDNISolone sod succ 40 mg/mL INJ IVP (08:35)
[2025-05-17] MEDS: diphenhydrAMINE 50 mg/mL SDV 1mL 25 MG IVP (08:38)
[2025-05-17 08:45] LABS: Alanine Aminotransferase 13 U/L (0-33); Albumin Level 4.1 g/dL (3.5-5.2); Alkaline Phosphatase 73 U/L (35-105); Aspartate Amino Transferase 18 U/L (0-32); Creatinine Clr Calc Pharmacy 37.3244; Globulin 2.4 g/dL (1.3-4.6); Total Protein 6.5 g/dL (6.6-8.7)
[2025-05-17] MEDS: TOCILIZUMAB AAZG IV (09:11)
[2025-05-17] MEDS: SODIUM CHLORIDE 0.9% IV (09:11)
[2025-05-17 10:29] VITALS: BP 117/70; PULSE 69; RESP 16; TEMP 36; O2SAT 100
== END 2025-05-22 23:59 | disposition home or self-care (01) ==
PROVIDERS: Internal Medicine Rheumatology; PCP Family Medicine; Visit Provider Family Medicine
DX: M05.9 Rheumatoid arthritis with rheumatoid factor, unspecified (principal); Z79.899 Other long term (current) drug therapy
CPT/HCPCS: 80076; 82565; 85025; 85651; 86140; 96375; 96413; J1200; J2919; J7050; Q5135

== ENCOUNTER 2025-06-13 08:00 | Oncology outpatient (recurring) (ONCR) | payer MEDICARE, OTHER, SELFPAY ==
[2025-06-13 08:07] VITALS: BP 115/67; PULSE 79; RESP 16; TEMP 35.7
[2025-06-13] MEDS: diphenhydrAMINE 50 mg/mL SDV 1mL 25 MG IVP (08:40)
[2025-06-13] MEDS: methylPREDNISolone sod succ 40 mg/mL INJ IVP (08:42)
[2025-06-13] MEDS: TOCILIZUMAB AAZG IV (09:10)
[2025-06-13] MEDS: SODIUM CHLORIDE 0.9% IV (09:10)
[2025-06-13 10:22] VITALS: BP 109/68; PULSE 68; RESP 16; TEMP 36.3; O2SAT 97
== END 2025-06-21 23:59 | disposition home or self-care (01) ==
PROVIDERS: PCP Family Medicine; Visit Provider Family Medicine
DX: M05.9 Rheumatoid arthritis with rheumatoid factor, unspecified (principal); Z79.899 Other long term (current) drug therapy
CPT/HCPCS: 96375; 96413; J1200; J2919; J7050; Q5135

== ENCOUNTER → 2025-06-29 12:40 | Outpatient (BNVA) | payer MEDICARE, OTHER, SELFPAY | PROVIDERS: PCP Family Medicine; Visit Provider Internal Medicine Rheumatology | DX: M05.9 Rheumatoid arthritis with rheumatoid factor, unspecified (principal); Z79.899 Other long term (current) drug therapy; D72.819 Decreased white blood cell count, unspecified; Z89.412 Acquired absence of left great toe; Z86.711 Personal history of pulmonary embolism; Z79.01 Long term (current) use of anticoagulants | CPT/HCPCS: 99214 ==

== ENCOUNTER 2025-07-20 13:00 | Oncology outpatient (recurring) (ONCR) | payer MEDICARE, OTHER, SELFPAY ==
--- NOTE | 2025-07-07 14:30 | XR_ITS ---
WS: [id number] SCREENING DEXA SCAN [employer] CLINICAL INFORMATION: M81.0 - Age-related osteoporosis without current patholog... COMPARISON: None. FINDINGS: The L1-L4 bone mineral density measures 1.430 g/cm2. This corresponds to a T score score of 2.1 and Z score of 4.3. Left femoral neck bone mineral density measures 1.091 g/cm2. This corresponds to a T score of 0.7 and Z score of 2.8. Right femoral neck bone mineral density measures 0.997 g/cm2. This corresponds to a T score -0.1of and Z score of 2.0. Mean femoral neck bone mineral density measures 1.044 g/cm2. This corresponds to a T score of 0.3 and Z score of 2.4. XR/XR DEXA axial skeleton* 20973 IMPRESSION: Normal bone mineralization. Patient's FRAX calculated 10 year probability for major osteoporotic fracture i s 18.2% and osteoporotic hip fracture is 5.8%.
[2025-07-20 13:31] VITALS: BP 100/64; PULSE 72; RESP 16; TEMP 36.7; O2SAT 95
[2025-07-20 13:41] LABS: Hematocrit 33.4 % (36-47); Hemoglobin 10.90 g/dL (11.27-16.99); Mean Corpuscular HGB Conc 32.6 g/dL (30-55); Mean Corpuscular Hemoglobin 30.4 pg (27-33); Mean Corpuscular Volume 93.0 fl (85-98); Nucleated Red Blood Cells % 0 %; Platelet Count 174 10^3/cmm (157-399); Red Blood Count 3.59 10^6/uL (3.85-5.65); White Blood Count 3.22 10^3/uL (3.29-11.43)
[2025-07-20 13:59] LABS: Alanine Aminotransferase 17 U/L (0-33); Albumin Level 3.9 g/dL (3.5-5.2); Alkaline Phosphatase 73 U/L (35-105); Aspartate Amino Transferase 25 U/L (0-32); Globulin 1.9 g/dL (1.3-4.6); Total Protein 5.8 g/dL (6.6-8.7)
[2025-07-20] MEDS: diphenhydrAMINE 50 mg/mL SDV 1mL 25 MG IVP (14:00)
[2025-07-20] MEDS: methylPREDNISolone sod succ 40 mg/mL INJ IVP (14:03)
[2025-07-20] MEDS: TOCILIZUMAB AAZG IV (14:29)
[2025-07-20] MEDS: SODIUM CHLORIDE 0.9% IV (14:29)
[2025-07-20 15:45] VITALS: BP 96/59; PULSE 71; RESP 17; TEMP 36.6; O2SAT 97
== END 2025-07-22 23:59 | disposition home or self-care (01) ==
PROVIDERS: Internal Medicine Rheumatology; PCP Family Medicine; Visit Provider Family Medicine
DX: M05.9 Rheumatoid arthritis with rheumatoid factor, unspecified; Z79.899 Other long term (current) drug therapy; Z53.9 Procedure and treatment not carried out, unspecified reason
CPT/HCPCS: 77080; 80076; 82565; 85025; 85651; 86140; 96375; 96413; J1200; J2919; J7050; Q5135

== ENCOUNTER 2025-08-17 07:47 | Oncology outpatient (recurring) (ONCR) | payer MEDICARE, OTHER, SELFPAY ==
[2025-08-17 08:04] VITALS: BP 99/60; PULSE 70; TEMP 36.4; O2SAT 99
[2025-08-17] MEDS: diphenhydrAMINE 50 mg/mL SDV 1mL 25 MG IVP (08:34)
[2025-08-17] MEDS: methylPREDNISolone sod succ 40 mg/mL INJ IVP (08:38)
[2025-08-17] MEDS: TOCILIZUMAB AAZG IV (09:08)
[2025-08-17] MEDS: SODIUM CHLORIDE 0.9% IV (09:08)
[2025-08-17 10:10] VITALS: BP 105/64; PULSE 66; TEMP 36.2; O2SAT 99
== END 2025-08-21 23:59 | disposition home or self-care (01) ==
LOC: ONCMED 07:47
PROVIDERS: PCP Family Medicine; Visit Provider Family Medicine
DX: M05.9 Rheumatoid arthritis with rheumatoid factor, unspecified (principal); Z79.899 Other long term (current) drug therapy
CPT/HCPCS: 96375; 96413; J1200; J2919; J7050; Q5135

== ENCOUNTER 2025-09-14 07:43 | Oncology outpatient (recurring) (ONCR) | payer MEDICARE, OTHER, SELFPAY ==
[2025-09-14 08:01] VITALS: BP 103/62; PULSE 73; TEMP 36.2; O2SAT 98
[2025-09-14] MEDS: diphenhydrAMINE 50 mg/mL SDV 1mL 25 MG IVP (08:09)
[2025-09-14 08:10] LABS: Hematocrit 33.3 % (36-47); Hemoglobin 10.80 g/dL (11.27-16.99); Mean Corpuscular HGB Conc 32.4 g/dL (30-55); Mean Corpuscular Hemoglobin 30.4 pg (27-33); Mean Corpuscular Volume 93.8 fl (85-98); Nucleated Red Blood Cells % 0 %; Platelet Count 178 10^3/cmm (157-399); Red Blood Count 3.55 10^6/uL (3.85-5.65); White Blood Count 2.98 10^3/uL (3.29-11.43)
[2025-09-14] MEDS: methylPREDNISolone sod succ 40 mg/mL INJ IVP (08:12)
[2025-09-14 08:32] LABS: Alanine Aminotransferase 13 U/L (0-33); Albumin Level 4.2 g/dL (3.5-5.2); Alkaline Phosphatase 70 U/L (35-105); Aspartate Amino Transferase 26 U/L (0-32); Globulin 1.9 g/dL (1.3-4.6); Total Protein 6.1 g/dL (6.6-8.7)
[2025-09-14] MEDS: SODIUM CHLORIDE 0.9% IV (08:43)
[2025-09-14] MEDS: TOCILIZUMAB AAZG IV (08:43)
== END 2025-09-21 23:59 | disposition home or self-care (01) ==
PROVIDERS: Internal Medicine Rheumatology; PCP Family Medicine; Visit Provider Family Medicine
DX: M05.9 Rheumatoid arthritis with rheumatoid factor, unspecified (principal); Z79.899 Other long term (current) drug therapy
CPT/HCPCS: 80076; 82565; 85025; 85651; 86140; 96375; 96413; J1200; J2919; J7050; Q5135